=== PATIENT | female | born 1965 | race Caucasian/White ===

== ENCOUNTER 2017-03-15 15:26 | Emergency (ER) | payer MEDICARE, MEDICAID ==
[2017-03-15 15:53] LABS: #Basophils 0.1 thou/uL (0.0-0.2); #Eosinphils 0.1 thou/uL (0.0-0.7); #Lymphocytes 2.3 thou/uL (1.20-3.40); #Monocytes 0.4 thou/uL (0.11-0.59); #Neutrophils 3.2 thou/uL (1.40-6.50); %Basophils 1.1 % (0.0-1.0); %Eosinophils 2.2 % (0.0-10.0); %Lymphocytes 36.9 % (21.0-51.0); %Monocytes 6.8 % (0.0-10.0); Hematocrit 44.4 % (36.0-47.0); Mean Platelet Volume 7.2 fL (7.4-10.4); Red Blood Cell (RBC) Count 4.34 mill/uL (4.20-5.40); White Blood Cell (WBC) Count 6.1 thou/uL (4.8-10.8)
--- NOTE | 2017-03-15 16:17 | RAD ---
FRONTAL RADIOGRAPH CHEST: Date: 03-15-17 Comparison: 01-15-17 History: Dialysis patient, atrial fibrillation, cardiac arrhythmia. FINDINGS: No pneumothorax, pleural fluid, focal consolidation or alveolar edema. Heart and mediastinal contour s unremarkable. IMPRESSION: No acute findings. POS: [facility]
[2017-03-15 16:21] LABS: Troponin I 0.011 ng/mL (< 0.028)
[2017-03-15 16:26] LABS: ALT (SGPT) 13 U/L (8-55); AST (SGOT) 16 U/L (5-34); Alkaline Phosphatase 57 U/L (40-150); Anion Gap 16 mmol/L (10-20); BUN (Urea Nitrogen) 24 mg/dL (9.8-20.1); Bilirubin, Total 0.3 mg/dL (0.2-1.2); CK (CPK) 96 U/L (29-168); Calc. Creatinine Clearance 0 mL/min (70-130); Calcium 9.4 mg/dL (7.8-10.44); Carbon Dioxide 25 mmol/L (22-29); Chloride 103 mmol/L (98-107); Estimated GFR-MDRD 10; Globulin 3.3 g/dL (2.4-3.5); Protein, Total 7.5 g/dL (6.0-8.3)
[2017-03-15 20:31] LABS: Troponin I Less than 0.010 ng/mL (< 0.028)
--- NOTE | 2017-03-18 15:22 | EKG ---
Test Reason : Blood Pressure : / mmHG Vent. Rate : 092 BPM Atrial Rate : 092 BPM P-R Int : 142 ms QRS Dur : 082 ms QT Int : 346 ms P-R-T Axes : 052 000 038 degrees QTc Int : 427 ms Normal sinus rhythm No STEMI Normal ECG Confirmed by AZAM LR M.D. ([id number]), sports editor ANKUR GODFREY ([id number]) on 03/18/2017 3:21:33 PM Referred By: Confirmed By:AZAM LR M.D.
== END 2017-03-15 20:46 | disposition home or self-care (01) ==
LOC: ERS 15:26
DX: I49.3 Ventricular premature depolarization (principal); J44.9 Chronic obstructive pulmonary disease, unspecified; I48.91 Unspecified atrial fibrillation; N18.6 End stage renal disease; Z99.2 Dependence on renal dialysis; F17.210 Nicotine dependence, cigarettes, uncomplicated
CPT/HCPCS: 36415; 71010; 80053; 82553; 84484; 85025; 93005; 94760; 99406

== ENCOUNTER 2017-03-16 16:03 | Emergency (ER) | payer MEDICARE, MEDICAID ==
[2017-03-16 16:48] LABS: #Basophils 0.1 thou/uL (0.0-0.2); #Eosinphils 0.2 thou/uL (0.0-0.7); #Monocytes 0.5 thou/uL (0.11-0.59); #Neutrophils 6.4 thou/uL (1.40-6.50); %Basophils 0.8 % (0.0-1.0); %Eosinophils 2.4 % (0.0-10.0); %Lymphocytes 21.9 % (21.0-51.0); %Monocytes 5.4 % (0.0-10.0); Mean Platelet Volume 6.9 fL (7.4-10.4); Red Blood Cell (RBC) Count 4.42 mill/uL (4.20-5.40); White Blood Cell (WBC) Count 9.3 thou/uL (4.8-10.8)
--- NOTE | 2017-03-16 16:57 | RAD ---
FRONTAL VIEW CHEST: COMPARISON: 03/15/2017 INDICATION: Chest pain. FINDINGS: No consolidation, effusion, or pneumothorax. Chest is stable-appearing from the previous day. IMPRESSION: No focal consolidation. POS: [facility]
[2017-03-16 17:11] LABS: ALT (SGPT) 14 U/L (8-55); AST (SGOT) 14 U/L (5-34); Alkaline Phosphatase 58 U/L (40-150); Anion Gap 21 mmol/L (10-20); BUN (Urea Nitrogen) 32 mg/dL (9.8-20.1); Bilirubin, Total 0.5 mg/dL (0.2-1.2); CK (CPK) 94 U/L (29-168); Calc. Creatinine Clearance 0 mL/min (70-130); Calcium 9.5 mg/dL (7.8-10.44); Carbon Dioxide 18 mmol/L (22-29); Chloride 105 mmol/L (98-107); Estimated GFR-MDRD 8; Globulin 3.3 g/dL (2.4-3.5); Lipase 32 U/L (8-78); Protein, Total 7.4 g/dL (6.0-8.3)
[2017-03-16 17:23] LABS: Troponin I Less than 0.010 ng/mL (< 0.028)
--- NOTE | 2017-03-18 15:24 | EKG ---
Test Reason : Blood Pressure : / mmHG Vent. Rate : 084 BPM Atrial Rate : 084 BPM P-R Int : 126 ms QRS Dur : 084 ms QT Int : 360 ms P-R-T Axes : 073 029 059 degrees QTc Int : 425 ms Normal sinus rhythm Normal ECG Confirmed by AZAM LR M.D. ([id number]), film editor ANKUR GODFREY ([id number]) on 03/18/2017 3:23:54 PM Referred By: Confirmed By:AZAM LR M.D.
== END 2017-03-16 16:05 | disposition left against medical advice (07) ==
LOC: ERS 16:03
DX: Z53.21 Procedure and treatment not carried out due to patient leaving prior to being seen by health care provider (principal)
CPT/HCPCS: 36415; 71010; 80053; 82553; 83690; 83880; 84484; 85025; 93005

== ENCOUNTER 2017-05-17 15:38 | Inpatient (IN) | payer MEDICARE, MEDICAID ==
[2017-05-17 16:36] LABS: #Basophils 0.1 thou/uL (0.0-0.2); #Eosinphils 0.1 thou/uL (0.0-0.7); #Lymphocytes 2.5 thou/uL (1.20-3.40); #Monocytes 0.7 thou/uL (0.11-0.59); #Neutrophils 4.5 thou/uL (1.40-6.50); %Basophils 1.2 % (0.0-1.0); %Eosinophils 1.8 % (0.0-10.0); %Lymphocytes 32.1 % (21.0-51.0); %Monocytes 8.3 % (0.0-10.0); %Neutrophils 56.5 % (42.0-75.0); Mean Corpuscular HGB CONC 32.6 g/dL (32.0-36.0); Mean Corpuscular Hemoglobin 33.2 pg (27.0-31.0); Mean Platelet Volume 7.1 fL (7.4-10.4); Platelet Count 244 thou/uL (130-400); RBC Distribution Width 12.3 % (11.5-14.5); Red Blood Cell (RBC) Count 4.22 mill/uL (4.20-5.40); White Blood Cell (WBC) Count 7.9 thou/uL (4.8-10.8)
[2017-05-17 17:02] LABS: ALT (SGPT) 19 U/L (8-55); AST (SGOT) 12 U/L (5-34); Albumin 3.6 g/dL (3.5-5.0); Alkaline Phosphatase 56 U/L (40-150); Anion Gap 17 mmol/L (10-20); BUN (Urea Nitrogen) 37 mg/dL (9.8-20.1); Bilirubin, Total 0.3 mg/dL (0.2-1.2); Calc. Creatinine Clearance 0 mL/min (70-130); Calcium 9.1 mg/dL (7.8-10.44); Carbon Dioxide 24 mmol/L (22-29); Chloride 105 mmol/L (98-107); Estimated GFR-MDRD 8; Globulin 2.9 g/dL (2.4-3.5); Glucose 97 mg/dL (70-105); Protein, Total 6.5 g/dL (6.0-8.3); Sodium 142 mmol/L (136-145)
[2017-05-17 17:05] LABS: CKMB 1.2 ng/mL (0-6.6); Troponin I Less than 0.010 ng/mL (< 0.028)
[2017-05-17 17:37] LABS: PTT 29.9 SEC (22.9-36.1); Prothrombin Time 13.5 SEC (12.0-14.7)
--- NOTE | 2017-05-17 18:20 | CT ---
EXAM: NONCONTRAST HEAD CT 05/17/17 HISTORY: Left sided paresthesia. Left sided numbness involving the leg and arm since waking up at 10 a.m. COMPARISON: 04/04/14. TECHNIQUE: Noncontrast head CT is performed from skull base to skull vertex. FINDINGS: No parenchymal hemorrhage. No extra-axial hematoma. No midline shift. Basilar cisterns are patent. Br ain volume is age appropriate. Cortical herrera-white matter differentiation is preserved. Ventricles and sulci are patent and symmetric. Stable remote lacunar infarct involving the posterior left lentiform nucleus. Intact calvarium. Adequate aeration of the sinuses and mastoid air cells. IMPRESSION: No acute intracranial process. Results of the study discussed with Dr. Yuan 05/17/17 at 5:40 p.m. Code MALENA POS: [facility]
--- NOTE | 2017-05-17 18:20 | RAD ---
CHEST ONE VIEW 05/17/17 HISTORY: Cough. COMPARISON: 03/16/17 FINDINGS: Normal cardiac silhouette. The pulmonary vessels and hilum are normal. Costophrenic angles are clear. No mass. No consolidation. No pneumothorax or osseous abnormality. IMPRESSION: No acute cardiopulmonary process. POS: [facility]
[2017-05-17] MEDS ORDERED: Clopidogrel Bisulfate 75 MG TAB PO SCH (19:00)
[2017-05-17 20:16] LABS: Bilirubin Negative (Negative); Blood, Urine Negative (Negative); Clarity CLEAR (Clear); Glucose, Urine (Dipstick) Negative (Negative); Leukocyte Negative (Negative); Nitrite Negative (Negative); Protein, Urine (Dipstick) 100 mg/dL (Neg-Trace); Urobilinogen 0.2 mg/dL (0.2-1.0)
[2017-05-17 20:18] LABS: Bacteria/HPF Rare-Few HPF (None Seen); Hyaline Casts/LPF 0-3 HYALINE CAST LPF (0-3 Hyaline); RBC/HPF 0-3 HPF (0-3); Squamous Epithelial 0-3 HPF (0-3); WBC/HPF 0-3 HPF (0-3)
[2017-05-17] MEDS ORDERED: Ondansetron HCl/PF 4 MG/2 ML Vial IVP PRN (20:21)
[2017-05-17] MEDS ORDERED: Acetaminophen 325 MG TAB PO PRN (20:21)
[2017-05-17] MEDS ORDERED: Ondansetron ODT 4 MG TAB SL PRN (20:21)
[2017-05-17 21:11] LABS: Troponin I Less than 0.010 ng/mL (< 0.028)
[2017-05-17 21:32] VITALS: BMI 28.8
[2017-05-17 22:58] LABS: Troponin I Less than 0.010 ng/mL (< 0.028)
[2017-05-18] MEDS ORDERED: Acetaminophen 500 MG TAB PO PRN (07:51)
[2017-05-18] MEDS ORDERED: PROVENTIL INHALER 6.7 G (200 INHALATIONS) INH PRN (07:51)
--- NOTE | 2017-05-18 08:44 | HP ---
CHIEF COMPLAINT: Left-sided numbness and weakness. HISTORY OF PRESENT ILLNESS: This is a 51-year-old female patient with a history of COPD, hypertensio n, paroxysmal atrial fibrillation, end-stage renal disease from polycystic kidney disease on dialysis , presented to the emergency department with onset of left-sided numbness, tingling and weakness. Th e patient states that 2 days ago she developed left leg numbness and tingling, her left foot continue d to be numb. Yesterday, she developed left facial tingling and headache and dizziness, presented to the emergency department for further evaluation at that time. In the ER, her evaluation was normal. She had a normal CAT scan of the brain, normal EKG. She has a history of a TIA in 2013, symptoms r esolved completely at that time and she is now being admitted for further evaluation and treatment fo r TIA versus CVA. The patient denies any vision changes, any speech changes, no falls. Her dizziness and headache reso lved, but she continues to have left hand weakness as well as left foot and left arm numbness. Of no te, she had a recent bout of bronchitis and continues to have some cough at this point. PAST MEDICAL HISTORY: Again COPD. She recently quit smoking, history of paroxysmal atrial fibrillat ion followed by Dr. Chaves at [facility]. She had an episode a few months ago of a rapid ventr icular response which resolved with medications and she is now on diltiazem for rate control. Hypert ension, end-stage renal disease on dialysis for polycystic kidney disease, history of TIA in 2012 or 2013. PAST SURGICAL HISTORY: Fistula placement in the right arm, history of a right chest MediPort which h as been removed, history of a tubal ligation, cholecystectomy, umbilical hernia repair. SOCIAL HISTORY: Quit smoking months ago, but long history of remote smoking. Lives at home with her family. No drug use. No alcohol use. FAMILY HISTORY: Mother with polycystic kidney disease and CVA. No heart disease, no diabetes. REVIEW OF SYSTEMS: As per the history of present illness. HEENT: Positive headache, positive congestion. CARDIOVASCULAR: Denies chest pain, shortness of breath or palpitations. PULMONARY: Denies shortness of breath. Positive cough production. GASTROINTESTINAL: Denies nausea, vomiting, abdominal pain, melena or hematochezia. GENITOURINARY: Denies dysuria or hematuria. CARDIAC: As per the history of present illness. MUSCULOSKELETAL: Occasional joint pains. PSYCHIATRIC: No recent history of depression or anxiety. PHYSICAL EXAMINATION: VITAL SIGNS: Temperature 98.5, pulse 80-91, respirations 20, blood pressure 127/83, pulse ox 97% on room air. GENERAL: She is awake and alert, in no acute distress. Speech is clear and fluent, no conversationa l dyspnea. NECK: Supple, no bruits. HEART: Regular rate and rhythm with a 2/6 systolic ejection murmur. LUNGS: Clear bilaterally. No wheezes, rales or rhonchi. ABDOMEN: Soft. EXTREMITIES: With no edema. 2+ peripheral pulses bilaterally. NEUROLOGIC: Cranial nerves II-XII grossly intact. Strength is 5/5 bilaterally. Sensation decreased on the left hand and left foot, no lateralizing signs. SKIN Cranial nerves II-XII are grossly intact. LABORATORY DATA: As reviewed. CT of the brain showed no active disease. EKG was normal sinus rhyth m with no acute ST-T changes. Labs again revealed renal failure. ASSESSMENT AND PLAN: This is a 51-year-old female patient with a history of paroxysmal atrial fibril lation, remote history of transient ischemic attack and on dialysis for end-stage renal disease, now with episode consistent with transient ischemic attack versus cerebrovascular accident. 1. We will check MRI, carotid Dopplers and echocardiogram. We will continue Plavix 75 mg once daily . Consult Neurology for evaluation. 2. Hypertension. We will continue to monitor. 3. Paroxysmal atrial fibrillation. We will continue diltiazem and watch for low blood pressure read ings. 4. End-stage renal disease. Appreciate Dr. Burton. Will continue dialysis as per his plan. 5. Paroxysmal atrial fibrillation. Await echocardiogram. Consider continuing on Plavix or Eliquis.
--- NOTE | 2017-05-18 08:57 | CON ---
DATE OF CONSULTATION: 05/18/2017 SUBJECTIVE: Ms. 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 She tells me she woke up early that day with a fee ling of left leg numbness and weakness. CT scan of the brain showed no acute intracranial abnormalit y. Chest x-ray was also within normal. She said that she was treated for a course of bronchitis wit h steroids and antibiotics. We are now being consulted for her maintenance hemodialysis. REVIEW OF SYSTEMS: Positive left-sided weakness - resolved. No chest pain, no shortness of breath. No syncopal episode. Occasional dizziness. No diarrhea, no constipation. No fever or chills. No productive cough. No abdominal pain. Appetite and energy level is fair. No hematochezia. No melen a, no hematemesis, no dysuria, no urinary frequency. Occasional joint pains. No sore throat. No de creased hearing. No diplopia. HOME MEDICATIONS: Includes Renvela 800 mg 2 tabs b.i.d., albuterol 2 puffs every 4 hours p.r.n., dil tiazem 120 mg XL tab once a day, Eliquis 2.5 mg p.o. b.i.d. PAST MEDICAL HISTORY: 1. ESRD secondary to autosomal dominant polycystic kidney disease. 2. History of hypertension? 3. AFIB, currently resolved. PAST SURGICAL HISTORY: 1. Status post AV fistula placement. 2. Status post cuffed hemodialysis catheter placement. 3. Status post PD catheter placement with subsequent removal. 4. Status post bilateral tubal ligation. 5. Status post open cholecystectomy. 6. Status post infraumbilical midline hernia repair - mesh placement. ALLERGIES: CODEINE, ASPIRIN, LISINOPRIL. TRAUMA: None. IMMUNIZATIONS: Up to date. HOSPITALIZATIONS: Please see past medical history. SOCIAL HISTORY: The patient is and lives in the [facility] area. Currently, no s moking, no alcohol intake. Status post blood transfusion. Sedentary lifestyle. No IV drug abuse. No alcohol use. FAMILY HISTORY: Positive family history of chronic renal problems. PHYSICAL EXAMINATION: VITAL SIGNS: Blood pressure is currently 103/70, heart rate 90, respiratory rate 16, temperature 98. 6, and pulse ox 98%. GENERAL: Noted to be awake, comfortable, not in distress. SKIN: Adequate turgor. HEENT: She has pinkish conjunctivae, anicteric sclerae. NECK: No neck mass, no carotid bruits, no JVD. CHEST: No deformities. LUNGS: Clear breath sounds. No wheezing. No crackles heard. HEART: Normal sinus rhythm. No murmur, no gallops, no rubs. ABDOMEN: Globular, soft, nontender, no masses. EXTREMITIES: No edema. NEUROLOGIC: Awake, oriented to 3 spheres. Moving all extremities. No tremors and no asterixis. LABORATORY DATA AND IMAGING DATA: Laboratories of 05/17/2017; white count 7.9, hemoglobin 14, sodium 142, potassium 4, chloride 105, carbon dioxide 24, BUN 37, creatinine 5.77, AST 12, ALT 19. CK-MB i s 1.2, albumin 3.6, troponin I less than 0.01. CT scan of the brain negative. Chest x-ray negative. ASSESSMENT AND PLAN: 1. End-stage renal disease, stable. Currently, the patient is undergoing dialysis. My plan due to the low blood pressure and dizziness is to minimize fluid removal. She is undergoing dialysis today because she missed her treatment yesterday. I am at the bedside supervising her dialysis. 2. Left-sided weakness - resolved. CT scan was negative. 3. Chronic atrial fibrillation, on Cardizem and Eliquis. Agree with current management.
[2017-05-18] MEDS ORDERED: DILTIAZEM HCL 120 MG PO SCH (09:00)
[2017-05-18] MEDS: Sevelamer Carbonate 800 MG TAB PO SCH ×3 (12:08→16:42)
[2017-05-18] MEDS: Apixaban 5 MG TAB PO SCH ×2 (12:09→21:06)
--- NOTE | 2017-05-18 12:45 | ULT ---
CAROTID ULTRASOUND WITH STONE SCALE AND DOPPLER DUPLEX COLOR FLOW IMAGING SPECTRAL ANALYSIS PERFORMED: CLINICAL INDICATION: Left sided weakness FINDINGS: There is no significant atherosclerotic calcification of the carotid arteries. PEAK SYSTOLIC VELOCITY (CM/S): Right CCA 83 Left CCA 83 Right ICA 70 Left ICA 51 There is antegrade flow within the visualized bilateral vertebral arteries. IMPRESSION: 1. No hemodynamically significant stenosis of the right internal carotid artery. 2. No hemodynamically significant stenosis of the left internal carotid artery. POS: [facility]
--- NOTE | 2017-05-18 14:05 | MRI ---
BRAIN MRI WITHOUT CONTRAST: Date: 05-18-17 Comparison: 12-07-13 History: Left sided numbness. Lightheadedness. Technique: Multisequence MR imaging of the brain provided without contrast. FINDINGS: The diffusion weighted imaging demonstrates no evidence for acute infarction. The axial gradient echo imaging demonstrates no evidence for intracranial hemorrhage. There are scattered foci of increased T2 and FLAIR signal within the periventricular, deep and subcor tical white matter, right more numerous than left, nonspecific and not significantly changed since 2013 exam. The imaged paranasal sinuses/mastoid air cells demonstrate normal signal intensity. Juliet rial flow voids at the axial level of the skull base appear grossly unremarkable on the T2 weighted i maging. Regional bone marrow signal intensity is within normal limits. IMPRESSION: Stable noncontrast enhanced brain MRI. No evidence for acute infarction. POS: [facility]
[2017-05-18] MEDS ORDERED: Temazepam 15 MG CAP PO PRN (15:43)
[2017-05-18] MEDS ORDERED: diphenhydrAMINE 25 MG CAP PO PRN (15:50)
[2017-05-18] MEDS ORDERED: Nicotine 21 MG PATCH TOP SCH (16:00)
--- NOTE | 2017-05-18 19:15 | CON ---
DATE OF CONSULTATION: 05/18/2017 CONSULTING PHYSICIAN: Hospitalist Service. IMPRESSION: 1. Transient ischemic attack episode suggestive of possible brainstem ischemic event. 2. End-stage renal disease. 3. Atrial fibrillation. PLAN: 1. Eliquis. 2. The patient discharged home. HISTORY OF PRESENT ILLNESS: Ms. Crawford is a middle-aged woman with a past history as noted above. Richard benites presented with right-sided weakness, tingling, and some dizziness. Symptoms lasted approximately 1 hour and steadily improved. She had an MRI of the brain done today, which showed some chronic small vessel ischemic changes and no acute ischemic event. Carotid Doppler was unremarkable. She has a h istory of atrial fibrillation. She has not been on any anticoagulants or aspirin recently. PAST MEDICAL HISTORY: Listed above. ALLERGIES: None. SOCIAL HISTORY: Unremarkable. FAMILY HISTORY: Noncontributory. REVIEW OF SYSTEMS: Otherwise, negative for any focal neurologic events in the past. PHYSICAL EXAMINATION: GENERAL: She is alert and appropriate. Her speech is fluent and clear. NEUROLOGIC: Cranial nerves II-XII are intact. Motor exam showed symmetric strength. There was no f ix or drift. Sensation was intact to light touch. Cerebellar testing showed normal finger to nose a nd rapid alternating movements. She can walk independently. HEENT: Unremarkable. NECK: Supple. No lymphadenopathy noted. EXTREMITIES: No cyanosis, clubbing, or edema. SUMMARY: This is a middle-aged woman with risk factors for stroke. I agree with starting her on Malka cindy. She has returned to normal baseline. We happy to follow up with her for further care.
[2017-05-18] MEDS ORDERED: Temazepam 15 MG CAP PO SCH (21:00)
[2017-05-18] MEDS ORDERED: Atorvastatin Calcium 10 MG TAB PO SCH (21:00)
[2017-05-19 05:39] LABS: Cardiac Risk 3.6 (Less than 4.5)
[2017-05-19 07:45] VITALS: BP 114/61; TEMP 98.9
--- NOTE | 2017-05-19 08:28 | DIS ---
DATE OF ADMISISON: 05/17/2017 DATE OF DISCHARGE: 05/19/2017 ADMISSION DIAGNOSES: Left-sided numbness and weakness. DISCHARGE DIAGNOSES: Transient ischemic attack, possible brainstem ischemic event. OTHER DIAGNOSES: End-stage kidney disease, polycystic kidney disease, paroxysmal atrial fibrillation . CONSULTATIONS: Dr. Catherine for Neurology, Dr. Burton for Nephrology. PROCEDURES: Telemetry monitoring, brain CT, MRI brain, carotid Doppler, echocardiogram. HOSPITAL COURSE: This is a 51-year-old female patient with a history of paroxysmal atrial fibrillati on, followed by Cardiology at [facility]. She has been rate controlled on beta-blockers and ant icoagulated only with aspirin. She has a history of polycystic kidney disease with end-stage kidney disease, on hemodialysis. Has a history of a TIA back in 2012 or 2013 and her symptoms completely re solved at that time. She presented to the emergency department with 2 days of worsening left leg num bness, left hand numbness and weakness. She developed a left facial tingling, headache, dizziness, a nd presented to the emergency department. In the ER, her CT of the brain was normal. EKG was normal . She continued to have the symptoms. She was given a dose of Plavix in the ER and admitted. She u nderwent MRI of her brain, which showed no active disease. Carotid Dopplers were clear. Echocardiog chris report is pending at this time. Due to her history of past TIA and her paroxysmal atrial fibrill ation, she was started on Eliquis 2.5 mg b.i.d. and started on aspirin. She was seen by Dr. Burton, con tinued on her hemodialysis during her hospitalization. Dr. Catherine saw the patient in evaluation and agreed with TIA and possible brainstem ischemic event. He agreed with initiating Eliquis therapy wi th close followup. She was close to her baseline and she was walking. No speech issues. No swallow ing problems and was stable for discharge on the day of discharge. Of note, she was recently seen in my office for bronchitis. She has continued to have a cough, but i mproved with nebulizer treatments. DISCHARGE PHYSICAL EXAMINATION: VITAL SIGNS: Temperature 98.9, pulse is 74 and regular, respirations 16-20, blood pressure 114/61, p ulse ox 96%-98% on room air. GENERAL: She is in awake and alert, in no acute distress. Speech is clear. NECK: Supple. HEART: Regular rate and rhythm. LUNGS: With scattered expiratory rhonchi, rare wheezes. ABDOMEN: Soft. EXTREMITIES: No edema. NEUROLOGIC: Cranial nerves II through XII were intact. Strength is 5/5 bilaterally. Sensation with slight decreased sensation in her left hand and left foot. DISCHARGE LABORATORY DATA: EKG showed no acute ST-T changes. White blood cell count 7,900, total ch olesterol 153, triglycerides 126, LDL of 85, HDL 43. Again, brain CT showed no active disease. Brai n MRI was normal with no acute infarction. Carotid Doppler were clear. Echocardiogram is pending. DISCHARGE MEDICATIONS: Include Eliquis 2.5 mg b.i.d., Lipitor 10 mg daily, Albuterol 2 puffs q.6 oralia rs p.r.n., DuoNeb p.r.n., Toprol 25 mg daily, Renvela 1600 mg t.i.d., Restoril 15 mg at bedtime, pred nisone taper over the next week. FOLLOWUP INSTRUCTIONS: Patient to follow up in my office in 1-2 weeks. Follow up with Dr. Dorene daniel 2 weeks.
[2017-05-19] MEDS: Apixaban 5 MG TAB PO SCH (08:56)
[2017-05-19] MEDS: Sevelamer Carbonate 800 MG TAB PO SCH (08:56)
--- NOTE | 2017-05-19 09:20 | PRG ---
DATE OF SERVICE: 05/19/2017 SUBJECTIVE: Ms. Crawford is a 51-year-old white female with known history of ESRD secondary to polycyst ic kidney disease, on maintenance hemodialysis and admitted for TIA. Comprehensive workup was essent ially negative. She tolerated dialysis yesterday. She is due for her dialysis today. I did instruc t the patient, upon discharge, to report for dialysis this afternoon at the outpatient dialysis unit. She voices no new complaints. She denies any chest pain, shortness of breath. PHYSICAL EXAMINATION: VITAL SIGNS: Blood pressure 114/61, heart rate 74, respiratory rate 20, temperature 98.9, pulse ox 9 6%. GENERAL: Noted to be awake, alert, comfortable, not in distress. SKIN: Adequate turgor. HEENT: Pinkish conjunctivae, anicteric sclerae. NECK: No neck mass, no carotid bruits, no JVD. CHEST: No deformities. LUNGS: Clear breath sounds, no wheezing, no crackles. HEART: Normal sinus rhythm. No murmurs, gallops or rubs. ABDOMEN: Globular, soft, nontender, no masses. EXTREMITIES: No edema, no deformities. LABORATORY: 05/19/2017 - Triglycerides 126, cholesterol 153, LDL is 85, HDL is 43. ASSESSMENT AND PLAN: 1. End-stage renal disease, stable. Continue Monday, Monday, Monday dialysis. Patient instructe d to report for outpatient dialysis this afternoon. 2. Status post transient ischemic attack - feeling better. Negative workup. Continue current manag ement.
--- NOTE | 2017-06-17 14:35 | EKG ---
Test Reason : Blood Pressure : / mmHG Vent. Rate : 093 BPM Atrial Rate : 093 BPM P-R Int : 128 ms QRS Dur : 082 ms QT Int : 356 ms P-R-T Axes : 067 -05 022 degrees QTc Int : 442 ms Normal sinus rhythm Possible Left atrial enlargement Inferior infarct , age undetermined Abnormal ECG Confirmed by REBECCA GIBSON DO ([id number]), video tape editor BERTIN ZALDIVAR ([id number]) on 06/17/2017 2:35:03 PM Referred By: Confirmed By:REBECCA GIBSON DO
== END 2017-05-19 09:45 | disposition home or self-care (01) | DRG 69 ==
LOC: ERS 15:38 → 2SE 18:35
PROVIDERS: ADMIT Family Medicine; ATTEND Family Medicine
PROC: 5A1D70Z Performance of Urinary Filtration, Intermittent, Less than 6 Hours Per Day (ICD-10-PCS; principal; 2017-05-18)
DX: G45.9 Transient cerebral ischemic attack, unspecified (principal); I12.0 Hypertensive chronic kidney disease with stage 5 chronic kidney disease or end stage renal disease; N18.6 End stage renal disease; I48.0 Paroxysmal atrial fibrillation; Q61.2 Polycystic kidney, adult type; I67.82 Cerebral ischemia; Z99.2 Dependence on renal dialysis; Z87.891 Personal history of nicotine dependence; J44.9 Chronic obstructive pulmonary disease, unspecified
CPT/HCPCS: 36415; 36416; 70450; 70551; 71045; 80053; 80061; 81003; 81015; 82553; 84484; 85025; 85610; 85730; 90935; 93005; 93306; 93880; G0257

== ENCOUNTER 2017-08-28 20:17 | Emergency (ER) | payer MEDICARE, MEDICAID ==
[2017-08-28 21:30] LABS: #Basophils 0.1 thou/uL (0.0-0.2); #Eosinphils 0.1 thou/uL (0.0-0.7); #Lymphocytes 1.9 thou/uL (1.20-3.40); #Monocytes 0.3 thou/uL (0.11-0.59); #Neutrophils 1.6 thou/uL (1.40-6.50); %Basophils 2.2 % (0.0-1.0); %Eosinophils 2.7 % (0.0-10.0); %Lymphocytes 47.8 % (21.0-51.0); %Monocytes 7.6 % (0.0-10.0); %Neutrophils 39.8 % (42.0-75.0); Hemoglobin 12.8 g/dL (12.0-16.0); Mean Corpuscular HGB CONC 32.5 g/dL (32.0-36.0); Mean Corpuscular Hemoglobin 32.5 pg (27.0-31.0); Mean Platelet Volume 7.4 fL (7.4-10.4); Platelet Count 174 thou/uL (130-400); RBC Distribution Width 12.2 % (11.5-14.5); Red Blood Cell (RBC) Count 3.92 mill/uL (4.20-5.40); White Blood Cell (WBC) Count 3.9 thou/uL (4.8-10.8)
--- NOTE | 2017-08-28 21:37 | RAD ---
AP VIEW CHEST: INDICATIONS: Headache with lung pain. COMPARISON: 06/13/2017 FINDINGS: The lungs are clear. The cardiomediastinal silhouette is normal. No acute osseous abnormality is ev ident. IMPRESSION: No acute cardiopulmonary abnormality. POS: [facility]
[2017-08-28 21:55] LABS: ALT (SGPT) 16 U/L (8-55); AST (SGOT) 18 U/L (5-34); Alkaline Phosphatase 69 U/L (40-150); Anion Gap 19 mmol/L (10-20); BUN (Urea Nitrogen) 16 mg/dL (9.8-20.1); Bilirubin, Total 0.3 mg/dL (0.2-1.2); Calc. Creatinine Clearance 0 mL/min (70-130); Calcium 8.3 mg/dL (7.8-10.44); Carbon Dioxide 30 mmol/L (22-29); Chloride 95 mmol/L (98-107); Estimated GFR-MDRD 12; Globulin 3.3 g/dL (2.4-3.5); Glucose 98 mg/dL (70-105); Potassium 3.7 mmol/L (3.5-5.1); Protein, Total 7.3 g/dL (6.0-8.3); Sodium 140 mmol/L (136-145)
[2017-08-28 22:34] LABS: CKMB 1.7 ng/mL (0-6.6); Troponin I Less than 0.010 ng/mL (< 0.028)
[2017-08-28] MEDS ORDERED: Acetaminophen 500 MG TAB ONE ×2 (22:47→22:48)
[2017-08-29] MEDS ORDERED: diphenhydrAMINE 50 MG/ML VIAL ONE (00:59)
[2017-08-29] MEDS ORDERED: Promethazine HCl 25 MG/ML VIAL ONE (00:59)
[2017-08-29] MEDS ORDERED: Dexamethasone 4 mg/ml Vial ONE (00:59)
[2017-08-29 01:19] LABS: Troponin I Less than 0.010 ng/mL (< 0.028)
== END 2017-08-29 01:47 | disposition home or self-care (01) ==
LOC: ERS 20:17
DX: J44.1 Chronic obstructive pulmonary disease with (acute) exacerbation (principal); J32.9 Chronic sinusitis, unspecified; I48.91 Unspecified atrial fibrillation; I12.0 Hypertensive chronic kidney disease with stage 5 chronic kidney disease or end stage renal disease; N18.6 End stage renal disease; Z86.73 Personal history of transient ischemic attack (TIA), and cerebral infarction without residual deficits; Z79.899 Other long term (current) drug therapy
CPT/HCPCS: 36415; 71045; 80053; 82553; 83880; 84484; 85025; 93005; 94640; 94760; 96361; 96365; 96375; J1100; J1200; J2550; J7620

== ENCOUNTER 2017-09-10 16:54 | Emergency (ER) | payer MEDICARE, MEDICAID ==
[2017-09-10 17:48] LABS: #Basophils 0.1 thou/uL (0.0-0.2); #Eosinphils 0.3 thou/uL (0.0-0.7); #Lymphocytes 2.9 thou/uL (1.20-3.40); #Monocytes 0.5 thou/uL (0.11-0.59); #Neutrophils 3.6 thou/uL (1.40-6.50); %Basophils 0.8 % (0.0-1.0); %Eosinophils 3.5 % (0.0-10.0); %Lymphocytes 39.3 % (21.0-51.0); %Monocytes 6.9 % (0.0-10.0); %Neutrophils 49.6 % (42.0-75.0); Mean Corpuscular Hemoglobin 32.3 pg (27.0-31.0); Mean Corpuscular Volume 97.8 fl (81.0-99.0); Mean Platelet Volume 6.8 fL (7.4-10.4); Platelet Count 202 thou/uL (130-400); RBC Distribution Width 11.7 % (11.5-14.5); Red Blood Cell (RBC) Count 4.04 mill/uL (4.20-5.40); White Blood Cell (WBC) Count 7.3 thou/uL (4.8-10.8)
[2017-09-10 17:50] LABS: Bilirubin Negative (Negative); Blood, Urine Negative (Negative); Clarity CLEAR (Clear); Glucose, Urine (Dipstick) Negative (Negative); Leukocyte Negative (Negative); Nitrite Negative (Negative); Protein, Urine (Dipstick) 30 mg/dL (Neg-Trace); Urobilinogen 0.2 mg/dL (0.2-1.0); pH, Urine 8.5 (5.0-9.0)
[2017-09-10 17:54] LABS: Bacteria/HPF None Seen HPF (None Seen); Hyaline Casts/LPF 0-3 HYALINE CAST LPF (0-3 Hyaline); RBC/HPF 0-3 HPF (0-3); Squamous Epithelial 0-3 HPF (0-3); WBC/HPF 0-3 HPF (0-3)
[2017-09-10 18:14] LABS: ALT (SGPT) 8 U/L (8-55); AST (SGOT) 13 U/L (5-34); Alkaline Phosphatase 61 U/L (40-150); Anion Gap 17 mmol/L (10-20); BUN (Urea Nitrogen) 43 mg/dL (9.8-20.1); Bilirubin, Total 0.4 mg/dL (0.2-1.2); Calc. Creatinine Clearance 0 mL/min (70-130); Calcium 8.7 mg/dL (7.8-10.44); Carbon Dioxide 25 mmol/L (22-29); Chloride 102 mmol/L (98-107); Estimated GFR-MDRD 5; Globulin 2.8 g/dL (2.4-3.5); Glucose 86 mg/dL (70-105); Lipase 34 U/L (8-78); Magnesium 1.8 mg/dL (1.6-2.6); Potassium 5.8 mmol/L (3.5-5.1); Protein, Total 6.8 g/dL (6.0-8.3); Sodium 138 mmol/L (136-145)
[2017-09-10] MEDS ORDERED: Lidocaine 1% PF 5 ML VIAL ONE (18:14)
[2017-09-10 18:16] LABS: CKMB 1.8 ng/mL (0-6.6); Troponin I Less than 0.010 ng/mL (< 0.028)
[2017-09-10] MEDS ORDERED: Diazepam 5 MG TAB ONE (18:29)
--- NOTE | 2017-09-10 19:22 | RAD ---
PORTABLE CHEST ONE VIEW: Date: 09-10-17 Time: 5:19 p.m. History: Chest pain. FINDINGS: Compared with exam of 08-28-17. The heart size is normal. The aorta is tortuous. The lungs are expanded without focal areas of consol idation, pneumothorax, or pleural effusions. IMPRESSION: No acute process. POS: [facility]
--- NOTE | 2017-10-09 14:46 | EKG ---
Test Reason : Blood Pressure : / mmHG Vent. Rate : 088 BPM Atrial Rate : 088 BPM P-R Int : 132 ms QRS Dur : 084 ms QT Int : 352 ms P-R-T Axes : 075 027 056 degrees QTc Int : 425 ms Normal sinus rhythm Normal ECG Reconfirmed by PROSPER HERNANDEZ ([id number]), marketing editor ANKUR GODFREY ([id number]) on 10/09/2017 2:45:57 PM Referred By: Confirmed By:PROSPER HERNANDEZ
== END 2017-09-10 19:12 | disposition home or self-care (01) ==
LOC: ERS 16:54
DX: M62.830 Muscle spasm of back (principal); I12.0 Hypertensive chronic kidney disease with stage 5 chronic kidney disease or end stage renal disease; N18.6 End stage renal disease; J44.9 Chronic obstructive pulmonary disease, unspecified; I48.91 Unspecified atrial fibrillation; Z86.73 Personal history of transient ischemic attack (TIA), and cerebral infarction without residual deficits; Z99.2 Dependence on renal dialysis; Z87.891 Personal history of nicotine dependence; Z79.899 Other long term (current) drug therapy
CPT/HCPCS: 20552; 36415; 71045; 80053; 81003; 81015; 82553; 83690; 83735; 84484; 85025; 93005; J2001

== ENCOUNTER 2017-10-18 15:55 | Emergency (ER) | payer MEDICARE, MEDICAID ==
--- NOTE | 2017-10-18 16:48 | RAD ---
LEFT FOOT THREE VIEWS: 10/18/17 HISTORY: Trauma, foot pain. FINDINGS/IMPRESSION: A minimally displaced fracture involving the shaft of the proximal phalanx of the fifth toe with exte nsion into the distal articular surface. POS: [facility]
== END 2017-10-18 17:00 | disposition home or self-care (01) ==
LOC: ERS 15:55
DX: S92.512A Displaced fracture of proximal phalanx of left lesser toe(s), initial encounter for closed fracture (principal); J44.9 Chronic obstructive pulmonary disease, unspecified; I48.91 Unspecified atrial fibrillation; N18.6 End stage renal disease; Z86.73 Personal history of transient ischemic attack (TIA), and cerebral infarction without residual deficits; Z79.899 Other long term (current) drug therapy; Z87.891 Personal history of nicotine dependence; W22.8XXA Striking against or struck by other objects, initial encounter

== ENCOUNTER 2017-12-20 14:13 | Emergency (ER) | payer MEDICARE, MEDICAID ==
[2017-12-20 15:43] LABS: Bilirubin Negative (Negative); Blood, Urine Trace (Negative); Clarity CLEAR (Clear); Glucose, Urine (Dipstick) 100 mg/dL (Negative); Leukocyte Negative (Negative); Nitrite Negative (Negative); Protein, Urine (Dipstick) 30 mg/dL (Neg-Trace); Specific Gravity, Urine 1.005 (1.002-1.036); Urobilinogen 0.2 mg/dL (0.2-1.0); pH, Urine 8.5 (5.0-9.0)
[2017-12-20 15:47] LABS: Bacteria/HPF None Seen HPF (None Seen); Hyaline Casts/LPF 0-3 HYALINE CAST LPF (0-3 Hyaline); Pathc Cast-AUWi Flag 0.14 (0-2.49); RBC/HPF 0-3 HPF (0-3); Squamous Epithelial 0-3 HPF (0-3); WBC/HPF 0-3 HPF (0-3)
[2017-12-20 15:55] LABS: #Eosinphils 0.1 thou/uL (0.0-0.7); #Lymphocytes 1.8 thou/uL (1.20-3.40); #Monocytes 0.5 thou/uL (0.11-0.59); %Basophils 0.7 % (0.0-1.0); %Eosinophils 2.3 % (0.0-10.0); %Lymphocytes 33.8 % (21.0-51.0); %Monocytes 8.7 % (0.0-10.0); %Neutrophils 54.6 % (42.0-75.0); Hemoglobin 12.8 g/dL (12.0-16.0); Mean Corpuscular HGB CONC 33.9 g/dL (32.0-36.0); Mean Corpuscular Hemoglobin 33.6 pg (27.0-31.0); Mean Platelet Volume 6.7 fL (7.4-10.4); Platelet Count 190 thou/uL (130-400); RBC Distribution Width 12.7 % (11.5-14.5); Red Blood Cell (RBC) Count 3.82 mill/uL (4.20-5.40); White Blood Cell (WBC) Count 5.4 thou/uL (4.8-10.8)
[2017-12-20 15:59] LABS: Lactic Acid 2.1 mmol/L (0.5-2.2)
[2017-12-20 16:03] LABS: ALT (SGPT) 9 U/L (8-55); AST (SGOT) 10 U/L (5-34); Alkaline Phosphatase 50 U/L (40-150); Anion Gap 19 mmol/L (10-20); BUN (Urea Nitrogen) 28 mg/dL (9.8-20.1); Bilirubin, Total 0.4 mg/dL (0.2-1.2); CK (CPK) 91 U/L (29-168); Calc. Creatinine Clearance 0 mL/min (70-130); Calcium 8.5 mg/dL (7.8-10.44); Carbon Dioxide 24 mmol/L (22-29); Chloride 101 mmol/L (98-107); Estimated GFR-MDRD 7; Globulin 2.4 g/dL (2.4-3.5); Glucose 93 mg/dL (70-105); Lipase 54 U/L (8-78); Potassium 5.2 mmol/L (3.5-5.1); Protein, Total 6.4 g/dL (6.0-8.3); Sodium 139 mmol/L (136-145)
[2017-12-20 16:04] LABS: INR-International Normal Ratio 1.1; PTT 34.7 SEC (22.9-36.1)
[2017-12-20 16:07] LABS: CKMB 1.3 ng/mL (0-6.6); Troponin I Less than 0.010 ng/mL (< 0.028)
--- NOTE | 2017-12-20 16:23 | RAD ---
CHEST ONE VIEW: 12/20/17 HISTORY: Chest pain. COMPARISON: 09/10/17. FINDINGS: Cardiac silhouette is magnified by projection. Pulmonary vasculature unremarkable. Mediastinum midlin e. No lobar consolidation or evidence of pneumothorax. Minimal bibasilar atelectasis. sample collector leads overlie the chest. IMPRESSION: No active cardiopulmonary abnormalities are demonstrated. POS: [facility]
== END 2017-12-20 17:15 | disposition home or self-care (01) ==
LOC: ERS 14:13
DX: R10.10 Upper abdominal pain, unspecified (principal); E87.5 Hyperkalemia; N18.6 End stage renal disease; R53.83 Other fatigue; J44.9 Chronic obstructive pulmonary disease, unspecified; I48.91 Unspecified atrial fibrillation; Z86.73 Personal history of transient ischemic attack (TIA), and cerebral infarction without residual deficits; Z87.891 Personal history of nicotine dependence
CPT/HCPCS: 71045; 80053; 81001; 82550; 82553; 83605; 83690; 84484; 85025; 85610; 85730; 86850; 86900; 86901; 87040; 93005

== ENCOUNTER 2018-03-07 14:17 | Emergency (ER) | payer MEDICARE, MEDICAID ==
--- NOTE | 2018-03-07 15:39 | RAD ---
LEFT ANKLE 3 VIEWS: HISTORY: A 52-year-old female with a history of left ankle injury following a fall this morning. FINDINGS: There is evidence for a fairly large nonunited distal fibular epiphysis. Minimal lateral soft tissue swelling. No evidence for acute fracture of dislocation. A small calcaneal enthesophyte. Evidence for a large ankle joint effusion. IMPRESSION: Minimal soft tissue swelling at the ankle with evidence for a possible large joint effusion. An unun ited distal fibular epiphysis possibly related to developmental or an old injury. No acute fracture or dislocation. If the patient has persistent or worsening unexplained ankle pain or certainly evide nce for instability, or if there is clinical concern for the possibility of a nonosseous injury, cons ider nonemergent followup MRI study of the left ankle. POS: [facility]
[2018-03-07] MEDS ORDERED: HYDROcodone/Acetaminophen 5/325 mg Tablet ONE (16:42)
== END 2018-03-07 16:50 | disposition home or self-care (01) ==
LOC: ERS 14:17
DX: S93.402A Sprain of unspecified ligament of left ankle, initial encounter (principal); I48.91 Unspecified atrial fibrillation; Z86.73 Personal history of transient ischemic attack (TIA), and cerebral infarction without residual deficits; J44.9 Chronic obstructive pulmonary disease, unspecified; N18.6 End stage renal disease; Z99.2 Dependence on renal dialysis; Z87.891 Personal history of nicotine dependence; W01.0XXA Fall on same level from slipping, tripping and stumbling without subsequent striking against object, initial encounter; Y92.009 Unspecified place in unspecified non-institutional (private) residence as the place of occurrence of the external cause

== ENCOUNTER 2018-05-12 12:55 | Emergency (ER) | payer MEDICARE, MEDICAID ==
[2018-05-12] MEDS ORDERED: Albuterol Sulfate 2.5 mg/0.5 ml Neb ONE ×2 (13:24)
[2018-05-12] MEDS ORDERED: cefTRIAXone\\ROCEPHIN 1 GM VIAL ONE (13:55)
[2018-05-12] MEDS ORDERED: Dexamethasone 10 MG/ML VIAL ONE (13:55)
[2018-05-12 14:16] LABS: #Eosinphils 0.1 thou/uL (0.0-0.7); #Monocytes 0.4 thou/uL (0.11-0.59); #Neutrophils 2.1 thou/uL (1.40-6.50); %Eosinophils 2.8 % (0.0-10.0); %Lymphocytes 42.9 % (21.0-51.0); %Monocytes 7.9 % (0.0-10.0); %Neutrophils 45.5 % (42.0-75.0); Hemoglobin 13.3 g/dL (12.0-16.0); Mean Corpuscular HGB CONC 33.7 g/dL (32.0-36.0); Mean Corpuscular Hemoglobin 33.2 pg (27.0-31.0); Mean Corpuscular Volume 98.6 fL (78.0-98.0); Mean Platelet Volume 7.1 fL (7.4-10.4); Platelet Count 202 thou/uL (130-400); RBC Distribution Width 12.7 % (11.5-14.5); Red Blood Cell (RBC) Count 4.02 mill/uL (4.20-5.40); White Blood Cell (WBC) Count 4.6 thou/uL (4.8-10.8)
[2018-05-12 14:43] LABS: ALT (SGPT) 16 U/L (8-55); AST (SGOT) 20 U/L (5-34); Albumin 3.7 g/dL (3.5-5.0); Alkaline Phosphatase 41 U/L (40-150); Anion Gap 15 mmol/L (10-20); BUN (Urea Nitrogen) 12 mg/dL (9.8-20.1); Bilirubin, Total 0.5 mg/dL (0.2-1.2); CK (CPK) 82 U/L (29-168); Calc. Creatinine Clearance 0 mL/min (70-130); Carbon Dioxide 32 mmol/L (22-29); Chloride 98 mmol/L (98-107); Estimated GFR-MDRD 10; Globulin 2.9 g/dL (2.4-3.5); Glucose 94 mg/dL (70-105); Lipase 32 U/L (8-78); Protein, Total 6.6 g/dL (6.0-8.3); Sodium 141 mmol/L (136-145)
--- NOTE | 2018-05-12 15:57 | RAD ---
PORTABLE AP CHEST X-RAY: 05/12/18 HISTORY: Weakness and cough. COMPARISON: 12/20/17. FINDINGS: The cardiac silhouette and pulmonary vasculature are within normal limits. Lungs are clear. There has been no interval change from the prior exam. IMPRESSION: No acute cardiopulmonary process. POS: [facility]
== END 2018-05-12 15:19 | disposition home or self-care (01) ==
LOC: ERS 12:55
DX: J20.9 Acute bronchitis, unspecified (principal); J44.0 Chronic obstructive pulmonary disease with (acute) lower respiratory infection; N18.6 End stage renal disease; F17.210 Nicotine dependence, cigarettes, uncomplicated
CPT/HCPCS: 71045; 80053; 82550; 83690; 83880; 84484; 85025; 93005; 94644; 96361; 96365; 96375; J0696; J1100; J7611; J7620

== ENCOUNTER 2018-05-18 19:29 | Emergency (ER) | payer MEDICARE, MEDICAID ==
[~2018-05-18 19:29] MED LIST: Iopamidol 370 76% 100 ML VIAL ONE
[2018-05-18 20:00] LABS: #Basophils 0.1 thou/uL (0.0-0.2); #Eosinphils 0.1 thou/uL (0.0-0.7); #Lymphocytes 2.9 thou/uL (1.20-3.40); #Monocytes 0.6 thou/uL (0.11-0.59); #Neutrophils 3.9 thou/uL (1.40-6.50); %Basophils 0.8 % (0.0-1.0); %Eosinophils 1.4 % (0.0-10.0); %Lymphocytes 38.5 % (21.0-51.0); %Monocytes 7.3 % (0.0-10.0); Hemoglobin 13.2 g/dL (12.0-16.0); Mean Corpuscular HGB CONC 33.4 g/dL (32.0-36.0); Mean Corpuscular Hemoglobin 32.7 pg (27.0-31.0); Mean Platelet Volume 6.8 fL (7.4-10.4); Platelet Count 182 thou/uL (130-400); RBC Distribution Width 12.7 % (11.5-14.5); Red Blood Cell (RBC) Count 4.04 mill/uL (4.20-5.40); White Blood Cell (WBC) Count 7.6 thou/uL (4.8-10.8)
--- NOTE | 2018-05-18 20:01 | RAD ---
CHEST ONE VIEW: 05/18/18 HISTORY: Bronchitis. COMPARISON: Radiograph 05/12/18. FINDINGS: There is improvement of the bronchial markings from the comparison examination. No confluent air spac e consolidation, pneumothorax or effusion. IMPRESSION: Improving bronchitis. POS: [facility]
[2018-05-18 20:21] LABS: ALT (SGPT) 13 U/L (8-55); AST (SGOT) 13 U/L (5-34); Albumin 3.4 g/dL (3.5-5.0); Alkaline Phosphatase 45 U/L (40-150); BUN (Urea Nitrogen) 6 mg/dL (9.8-20.1); Bilirubin, Total 0.6 mg/dL (0.2-1.2); Calc. Creatinine Clearance 0 mL/min (70-130); Calcium 8.8 mg/dL (7.8-10.44); Estimated GFR-MDRD 27; Globulin 2.9 g/dL (2.4-3.5); Glucose 89 mg/dL (70-105); Protein, Total 6.3 g/dL (6.0-8.3)
[2018-05-18 20:30] LABS: Anion Gap 16 mmol/L (10-20); Carbon Dioxide 35 mmol/L (22-29); Chloride 94 mmol/L (98-107); Potassium 3.4 mmol/L (3.5-5.1); Sodium 142 mmol/L (136-145)
--- NOTE | 2018-05-18 21:15 | CT ---
CT ANGIOGRAM CHEST WITH CONTRAST 05/18/18 HISTORY: Difficulty breathing. Dialysis. Headache. COMPARISON: Chest radiograph same day. FINDINGS: CT angiogram chest performed after the intravenous administration of contrast. 3D rendering is provid ed. No proximal segmental pulmonary arterial filling defect. Thyroid is unremarkable. Pulmonary trunk size is normal. No pericardial effusion. No mediastinal adenopathy. No axillary adenopathy. Incidental note is made of polycystic kidneys replacing most of the renal parenchyma as well as innum erable hepatic cysts. Prior cholecystectomy. No acute osseous abnormality. IMPRESSION: 1. No proximal segmental pulmonary arterial filling defect. 2. No evidence for acute intrathoracic abnormality. 3. Polycystic kidneys and polycystic liver. POS: [facility]
[2018-05-18 21:52] LABS: Bilirubin Negative (Negative); Blood, Urine Small (Negative); Clarity CLEAR (Clear); Glucose, Urine (Dipstick) 100 mg/dL (Negative); Leukocyte Negative (Negative); Nitrite Negative (Negative); Protein, Urine (Dipstick) 100 mg/dL (Neg-Trace); Specific Gravity, Urine 1.006 (1.002-1.036); Urobilinogen 0.2 mg/dL (0.2-1.0); pH, Urine 8.5 (5.0-9.0)
[2018-05-18 21:53] LABS: Bacteria/HPF None Seen HPF (None Seen); Hyaline Casts/LPF 0-3 HYALINE CAST LPF (0-3 Hyaline); RBC/HPF 0-3 HPF (0-3); Squamous Epithelial 0-3 HPF (0-3); WBC/HPF 0-3 HPF (0-3)
[2018-05-18] MEDS ORDERED: Fentanyl 100 MCG/2 ML VIAL ONE (22:25)
[2018-05-18] MEDS ORDERED: Pantoprazole 40 MG VIAL ONE (22:26)
[2018-05-18] MEDS ORDERED: Mag-Al 1200 mg/1200 mg/30 ML UDCUP ONE (22:26)
[2018-05-18] MEDS ORDERED: Lidocaine Viscous Sol 2% 15 ml UD Cup ONE (22:26)
== END 2018-05-18 23:28 | disposition home or self-care (01) ==
LOC: ERS 19:29
DX: R10.13 Epigastric pain (principal); R07.9 Chest pain, unspecified; I48.91 Unspecified atrial fibrillation; Z86.73 Personal history of transient ischemic attack (TIA), and cerebral infarction without residual deficits; J44.9 Chronic obstructive pulmonary disease, unspecified; N18.6 End stage renal disease; Z99.2 Dependence on renal dialysis; F17.210 Nicotine dependence, cigarettes, uncomplicated; Z79.899 Other long term (current) drug therapy; Z79.51 Long term (current) use of inhaled steroids
CPT/HCPCS: 36415; 71045; 71275; 80053; 81003; 81015; 83690; 83880; 84484; 85025; 87040; 87086; 87804; 93005; 96374; 96375; C9113; J3010

== ENCOUNTER 2018-05-20 15:52 | Emergency (ER) | payer MEDICARE, MEDICAID ==
--- NOTE | 2018-05-20 16:50 | RAD ---
FRONTAL VIEW CHEST: INDICATIONS: End stage renal disease with weakness and fever. COMPARISON: 05/18/2018 FINDINGS: The lungs are clear. The cardiac silhouette is normal in size. No effusion or pneumothorax. IMPRESSION: Stable chest. No focal consolidation. POS: [facility]
[2018-05-20 17:11] LABS: #Basophils 0.1 thou/uL (0.0-0.2); #Eosinphils 0.3 thou/uL (0.0-0.7); #Lymphocytes 2.1 thou/uL (1.20-3.40); #Monocytes 0.4 thou/uL (0.11-0.59); #Neutrophils 2.5 thou/uL (1.40-6.50); %Basophils 1.3 % (0.0-1.0); %Eosinophils 4.8 % (0.0-10.0); %Monocytes 8.4 % (0.0-10.0); %Neutrophils 46.4 % (42.0-75.0); Hemoglobin 12.4 g/dL (12.0-16.0); Mean Corpuscular HGB CONC 32.9 g/dL (32.0-36.0); Mean Corpuscular Hemoglobin 32.8 pg (27.0-31.0); Mean Corpuscular Volume 99.6 fL (78.0-98.0); Mean Platelet Volume 7.2 fL (7.4-10.4); Platelet Count 171 thou/uL (130-400); RBC Distribution Width 12.9 % (11.5-14.5); Red Blood Cell (RBC) Count 3.77 mill/uL (4.20-5.40); White Blood Cell (WBC) Count 5.3 thou/uL (4.8-10.8)
[2018-05-20 17:42] LABS: ALT (SGPT) 11 U/L (8-55); AST (SGOT) 17 U/L (5-34); Albumin 3.2 g/dL (3.5-5.0); Alkaline Phosphatase 40 U/L (40-150); Anion Gap 16 mmol/L (10-20); BUN (Urea Nitrogen) 25 mg/dL (9.8-20.1); Bilirubin, Total 0.3 mg/dL (0.2-1.2); CK (CPK) 77 U/L (29-168); Calc. Creatinine Clearance 0 mL/min (70-130); Calcium 8.5 mg/dL (7.8-10.44); Carbon Dioxide 25 mmol/L (22-29); Chloride 101 mmol/L (98-107); Estimated GFR-MDRD 7; Globulin 2.8 g/dL (2.4-3.5); Glucose 83 mg/dL (70-105); Potassium 4.6 mmol/L (3.5-5.1); Sodium 137 mmol/L (136-145)
[2018-05-20 17:46] LABS: Bilirubin Negative (Negative); Blood, Urine Small (Negative); Clarity CLEAR (Clear); Glucose, Urine (Dipstick) 100 mg/dL (Negative); Leukocyte Negative (Negative); Nitrite Negative (Negative); Protein, Urine (Dipstick) 100 mg/dL (Neg-Trace); Specific Gravity, Urine 1.009 (1.002-1.036); Urobilinogen 0.2 mg/dL (0.2-1.0); pH, Urine 8.5 (5.0-9.0)
[2018-05-20 17:51] LABS: Bacteria/HPF None Seen HPF (None Seen); Hyaline Casts/LPF 0-3 HYALINE CAST LPF (0-3 Hyaline); Pathc Cast-AUWi Flag 0.58 (0-2.49); RBC/HPF 0-3 HPF (0-3); Squamous Epithelial None Seen HPF (0-3); WBC/HPF None Seen HPF (0-3)
== END 2018-05-20 18:52 | disposition home or self-care (01) ==
LOC: ERS 15:52
DX: R53.1 Weakness (principal); I48.91 Unspecified atrial fibrillation; J44.9 Chronic obstructive pulmonary disease, unspecified; N18.6 End stage renal disease; Z99.2 Dependence on renal dialysis; Z86.73 Personal history of transient ischemic attack (TIA), and cerebral infarction without residual deficits; Z79.899 Other long term (current) drug therapy
CPT/HCPCS: 36415; 71045; 80053; 81003; 81015; 82550; 84484; 85025; 93005

== ENCOUNTER 2018-06-28 17:41 | Emergency (ER) | payer MEDICARE, MEDICAID ==
--- NOTE | 2018-06-28 18:52 | RAD ---
LEFT KNEE FOUR VIEWS: HISTORY: Slipped and fell on knee. FINDINGS: There are no signs of fracture, dislocation, or joint effusion. Minimal arthritic change is seen. IMPRESSION: No evidence of fracture. POS: [facility]
--- NOTE | 2018-06-28 18:56 | RAD ---
LEFT WRIST THREE VIEWS: HISTORY: Slipped and fell. Injured wrist and knee. FINDINGS: There are marked arthritic changes of the first carpometacarpal joint space with subluxation of the f irst metacarpal which is probably on the basis of the advanced arthritic change in this region. I do not see any definite signs of an acute fracture. IMPRESSION: No evidence of fracture. POS: [facility]
[2018-06-28] MEDS ORDERED: traMADol HCl 50 MG TAB ONE ×2 (19:39)
== END 2018-06-28 20:00 | disposition home or self-care (01) ==
LOC: ERS 17:41
DX: S63.502A Unspecified sprain of left wrist, initial encounter (principal); S83.92XA Sprain of unspecified site of left knee, initial encounter; J44.9 Chronic obstructive pulmonary disease, unspecified; N18.6 End stage renal disease; F17.210 Nicotine dependence, cigarettes, uncomplicated; I48.91 Unspecified atrial fibrillation; Z86.73 Personal history of transient ischemic attack (TIA), and cerebral infarction without residual deficits; W01.0XXA Fall on same level from slipping, tripping and stumbling without subsequent striking against object, initial encounter

== ENCOUNTER 2018-07-10 08:36 | Emergency (ER) | payer MEDICARE, MEDICAID ==
[2018-07-10 09:27] LABS: #Basophils 0.1 thou/uL (0.0-0.2); #Eosinphils 0.3 thou/uL (0.0-0.7); #Lymphocytes 1.9 thou/uL (1.20-3.40); #Monocytes 0.3 thou/uL (0.11-0.59); #Neutrophils 2.4 thou/uL (1.40-6.50); %Basophils 1.3 % (0.0-1.0); %Eosinophils 6.3 % (0.0-10.0); %Lymphocytes 37.9 % (21.0-51.0); %Monocytes 6.5 % (0.0-10.0); Hemoglobin 13.8 g/dL (12.0-16.0); Mean Corpuscular HGB CONC 31.6 g/dL (32.0-36.0); Mean Corpuscular Hemoglobin 32.6 pg (27.0-31.0); Mean Platelet Volume 6.8 fL (7.4-10.4); Platelet Count 242 thou/uL (130-400); RBC Distribution Width 13.5 % (11.5-14.5); Red Blood Cell (RBC) Count 4.23 mill/uL (4.20-5.40)
[2018-07-10 09:55] LABS: ALT (SGPT) 10 U/L (8-55); AST (SGOT) 9 U/L (5-34); Alkaline Phosphatase 42 U/L (40-150); Anion Gap 19 mmol/L (10-20); BUN (Urea Nitrogen) 38 mg/dL (9.8-20.1); Bilirubin, Total 0.5 mg/dL (0.2-1.2); Calc. Creatinine Clearance 0 mL/min (70-130); Calcium 9.7 mg/dL (7.8-10.44); Carbon Dioxide 23 mmol/L (22-29); Chloride 101 mmol/L (98-107); Estimated GFR-MDRD 5; Glucose 72 mg/dL (70-105); Lipase 31 U/L (8-78); Potassium 5.4 mmol/L (3.5-5.1); Sodium 138 mmol/L (136-145)
[2018-07-10] MEDS ORDERED: ISOVUE-370 76%-LOCM 1 ML ONE (09:59)
[2018-07-10] MEDS ORDERED: Fentanyl 100 MCG/2 ML VIAL ONE (10:16)
[2018-07-10] MEDS ORDERED: Ondansetron PF 4 MG/2 ML Vial ONE (11:00)
--- NOTE | 2018-07-10 11:24 | CT ---
CT ABDOMEN AND PELVIS WITH CONTRAST: Date: 07/10/18 COMPARISON: None. HISTORY: Intermittent lower abdominal pain for a year. TECHNIQUE: Multiple contiguous axial images were obtained in a CT of the abdomen and pelvis with contrast. Coron al reformats were performed. FINDINGS: There are innumerable hypodensities in the kidneys which represent cysts. There are also hypodensitie s in the liver consistent with cysts. The gallbladder has been removed. There are nonobstructing calc ifications in both kidneys measuring up to 9.0 mm in size. Scattered diverticula are seen in the colon. No free air, free fluid, or stranding changes are seen i n the abdomen or pelvis. The small bowel and appendix are unremarkable. The reproductive organs are u nremarkable. Atherosclerotic calcifications are seen in the aorta. No abdominal or pelvic lymphadenopathy are seen . Mild degenerative changes are seen in the spine. The visualized inferior thorax and abdominal wall so ft tissues are unremarkable. IMPRESSION: 1. Polycystic kidney and liver disease. 2. Nonobstructing bilateral renal calcifications. 3. Diverticulosis without evidence of acute diverticulitis. POS: ROXY
[2018-07-10 11:37] LABS: Bilirubin Negative (Negative); Blood, Urine Small (Negative); Clarity CLEAR (Clear); Glucose, Urine (Dipstick) 100 mg/dL (Negative); Leukocyte Negative (Negative); Nitrite Negative (Negative); Protein, Urine (Dipstick) 100 mg/dL (Neg-Trace); Specific Gravity, Urine 1.007 (1.002-1.036); Urobilinogen 0.2 mg/dL (0.2-1.0)
[2018-07-10 11:39] LABS: Bacteria/HPF None Seen HPF (None Seen); Hyaline Casts/LPF 0-3 HYALINE CAST LPF (0-3 Hyaline); RBC/HPF 0-3 HPF (0-3); Squamous Epithelial 0-3 HPF (0-3); WBC/HPF 0-3 HPF (0-3)
[2018-07-10] MEDS ORDERED: traMADol HCl 50 MG TAB ONE (12:49)
== END 2018-07-10 14:49 | disposition left against medical advice (07) ==
LOC: ERS 08:36
DX: R10.30 Lower abdominal pain, unspecified (principal); J44.9 Chronic obstructive pulmonary disease, unspecified; I48.91 Unspecified atrial fibrillation; N18.6 End stage renal disease; F17.210 Nicotine dependence, cigarettes, uncomplicated; Z86.73 Personal history of transient ischemic attack (TIA), and cerebral infarction without residual deficits
CPT/HCPCS: 74177; 80053; 81003; 81015; 83690; 85025; 96372; 96374; 96375; J0500; J2405; J3010; Q9966

== ENCOUNTER 2021-01-18 05:31 | Emergency (ER) | payer MEDICARE, MEDICAID, OTHER ==
[2021-01-18 06:02] LABS: #Basophils 0.1 thou/uL (0.0-0.2); #Eosinphils 0.2 thou/uL (0.0-0.7); #Monocytes 0.4 thou/uL (0.11-0.59); #Neutrophils 3.2 thou/uL (1.40-6.50); %Basophils 0.9 % (0.0-1.0); %Eosinophils 3.4 % (0.0-10.0); %Lymphocytes 34.4 % (21.0-51.0); %Monocytes 6.4 % (0.0-10.0); %Neutrophils 54.9 % (42.0-75.0); Hemoglobin 10.2 g/dL (12.0-16.0); Mean Corpuscular Hemoglobin 34.5 pg (27.0-31.0); Platelet Count 150 thou/uL (130-400); RBC Distribution Width 13.1 % (11.5-14.5); Red Blood Cell (RBC) Count 2.95 mill/uL (4.20-5.40); White Blood Cell (WBC) Count 5.8 thou/uL (4.8-10.8)
[2021-01-18 06:22] LABS: ALT (SGPT) 12 U/L (8-55); AST (SGOT) 15 U/L (5-34); Albumin 3.4 g/dL (3.5-5.0); Alkaline Phosphatase 46 U/L (40-110); Anion Gap 18 mmol/L (10-20); BUN (Urea Nitrogen) 41 mg/dL (9.8-20.1); Bilirubin, Total 0.4 mg/dL (0.2-1.2); Calc. Creatinine Clearance 0 mL/min (70-130); Calcium 9.6 mg/dL (7.8-10.44); Carbon Dioxide 23 mmol/L (22-29); Chloride 103 mmol/L (98-107); Glucose 85 mg/dL (70-105); Potassium 5.1 mmol/L (3.5-5.1); Protein, Total 6.4 g/dL (6.0-8.3); Sodium 139 mmol/L (136-145)
[2021-01-18] MEDS ORDERED: Nitroglycerin 2% Ointment 1 INCH/1 GM Packet ONE (08:28)
[2021-01-18 11:14] LABS: SARS-CoV-2 NAA Rapid Test Not Detected (NotDetected)
== END 2021-01-18 10:26 | disposition home or self-care (01) ==
LOC: ERS 05:31
DX: J44.1 Chronic obstructive pulmonary disease with (acute) exacerbation (principal); Z20.822 Contact with and (suspected) exposure to COVID-19; Z79.899 Other long term (current) drug therapy; I48.91 Unspecified atrial fibrillation; N18.6 End stage renal disease; Z99.2 Dependence on renal dialysis; F17.210 Nicotine dependence, cigarettes, uncomplicated
CPT/HCPCS: 71045; 80053; 84484; 85025; 93005; U0002; 36415

== ENCOUNTER 2021-05-10 18:34 | Inpatient (IN) | payer MEDICARE, MEDICAID ==
[~2021-05-10 18:34] MED LIST changes: -Iopamidol 370 76% 100 ML VIAL ONE; +Iopamidol-370 76% 500 ML 1 ML ONE
[2021-05-10] MEDS ORDERED: Calcium Chloride 1 GM/10 ML Abboject SYRINGE ONE (18:50)
[2021-05-10] MEDS ORDERED: Propofol 1,000 MG/100 ML VIAL IV ONE (18:53)
[2021-05-10 19:06] LABS: #Basophils 0.1 thou/uL (0.0-0.2); #Eosinphils 0.2 thou/uL (0.0-0.7); #Lymphocytes 2.3 thou/uL (1.20-3.40); #Monocytes 0.3 thou/uL (0.11-0.59); #Neutrophils 6.1 thou/uL (1.40-6.50); %Basophils 0.6 % (0.0-1.0); %Eosinophils 2.3 % (0.0-10.0); %Lymphocytes 26.1 % (21.0-51.0); %Monocytes 3.2 % (0.0-10.0); %Neutrophils 67.9 % (42.0-75.0); Hemoglobin 10.8 g/dL (12.0-16.0); Mean Corpuscular HGB CONC 32.6 g/dL (32.0-36.0); Mean Corpuscular Hemoglobin 34.7 pg (27.0-31.0); Mean Platelet Volume 7.1 fL (7.4-10.4); Platelet Count 227 thou/uL (130-400); RBC Distribution Width 14.5 % (11.5-14.5); Red Blood Cell (RBC) Count 3.13 mill/uL (4.20-5.40); White Blood Cell (WBC) Count 8.9 thou/uL (4.8-10.8)
[2021-05-10 19:15] LABS: INR-International Normal Ratio 1.1; Prothrombin Time 14.6 sec (12.0-14.7)
[2021-05-10 19:16] LABS: PTT 34.7 sec (22.9-36.1)
[2021-05-10 19:24] LABS: MDiff Complete? YES; Macrocytosis SLIGHT = 6-15 cells (100X) (0-5/hpf); Platelet Morphology Comment Appears Adequate; Polychromasia SLIGHT = 2-3 cells (100X) (0-2/hpf)
[2021-05-10 19:26] LABS: ALT (SGPT) 50 U/L (8-55); AST (SGOT) 87 U/L (5-34); Albumin 3.4 g/dL (3.5-5.0); Alkaline Phosphatase 67 U/L (40-110); Anion Gap 19 mmol/L (10-20); BUN (Urea Nitrogen) 10 mg/dL (9.8-20.1); Bilirubin, Total 0.8 mg/dL (0.2-1.2); Calc. Creatinine Clearance 0 mL/min (70-130); Calcium 9.2 mg/dL (7.8-10.44); Carbon Dioxide 31 mmol/L (22-29); Chloride 94 mmol/L (98-107); Glucose 135 mg/dL (70-105); Potassium 3.8 mmol/L (3.5-5.1); Protein, Total 6.4 g/dL (6.0-8.3); Sodium 140 mmol/L (136-145)
[2021-05-10 19:33] LABS: Actual Bicarbonate (HCO3a) 25.1 mEq/L (22-28); Analyzer IN Cardio ER; Base Excess (BEa) 3.8 mEq/L (-2.0 to +3.0); CO2 Tension 27.1 mmHg (35.0-45.0); Calcium, Ionized (arterial) 1.06 mmol/L (1.12-1.30); Carboxyhemoglobin (COHb) 0.3 gm% (0.0-3.0); Hemoglobin (Hb) 10.3 g/dL (12.0-16.0); O2 Tension (PaO2), arterial 381.5 mmHg (80.0-100.0); Potassium - ABG Lab 3.01 mmol/L (3.70-5.30)
[2021-05-10 19:45] LABS: Bacteria/HPF None Seen HPF (None Seen); Bilirubin Negative (Negative); Blood, Urine Trace (Negative); Clarity Clear (Clear); Glucose, Urine (Dipstick) 50 mg/dL (Negative); Ketone, Urine Trace mg/dL (Negative); Leukocyte Negative Leu/uL (Negative); Nitrite Negative (Negative); Protein, Urine (Dipstick) 300 mg/dL (Neg-Trace); Specific Gravity, Urine 1.008 (1.002-1.036); Squamous Epithelial 0-3 HPF (0-3); Urobilinogen Normal mg/dL (Less than 2); pH, Urine 8.5 (5.0-9.0)
[2021-05-10 20:00] LABS: pH, Arterial 7.58 (7.35-7.45)
[2021-05-10 20:01] LABS: ALV-art Gradient 297.625 mmHg (0-20); Puncture Site LBA
[2021-05-10] MEDS ORDERED: Midazolam HCl 2 mg/2 ml Vial ONE (20:07)
[2021-05-10] MEDS ORDERED: Furosemide 100 MG/10 ML VIAL ONE (20:07)
[2021-05-10 20:39] LABS: SARS-CoV-2 NAA Rapid Test Not Detected (NotDetected)
[2021-05-10 20:46] LABS: Magnesium 1.9 mg/dL (1.6-2.6)
[2021-05-10] MEDS ORDERED: Ondansetron PF 4 MG/2 ML Vial IVP PRN ×2 (21:45→22:50)
[2021-05-10] MEDS ORDERED: Ondansetron ODT 4 MG TAB SL PRN (21:45)
[2021-05-10] MEDS ORDERED: Acetaminophen 325 MG TAB PO PRN (21:45)
[2021-05-10 22:05] LABS: Troponin I 0.257 ng/mL (< 0.028)
[2021-05-10] MEDS ORDERED: Lorazepam 2 MG/ML VIAL SLOW IVP PRN (23:45)
[2021-05-10] MEDS ORDERED: DISCONTINUE PREVIOUS NARCOTIC PAIN MEDICATIONS AND BENZODIAZEPINES FS SCH (23:45)
[2021-05-10] MEDS ORDERED: Propofol BOLUS 1,000 MG/100 ML VIAL IV PRN (23:45)
[2021-05-10] MEDS ORDERED: Fentanyl BOLUS 250 ML IVPB PRN (23:45)
[2021-05-10] MEDS ORDERED: Morphine 2 MG/ML VIAL SLOW IVP PRN (23:45)
[2021-05-10] MEDS ORDERED: fentaNYL Citrate/PF 2,000 MCG in Sodium Chloride 0.9% 60 ML IV SCH (23:45)
[2021-05-11 01:12] LABS: Critical Call Chem Troponin I ICU.RB; Troponin I 0.384 ng/mL (< 0.028)
[2021-05-11 04:31] LABS: #Lymphocytes 1.1 thou/uL (1.20-3.40); #Monocytes 0.4 thou/uL (0.11-0.59); #Neutrophils 4.3 thou/uL (1.40-6.50); %Basophils 0.1 % (0.0-1.0); %Eosinophils 0.4 % (0.0-10.0); %Lymphocytes 18.3 % (21.0-51.0); %Monocytes 7.1 % (0.0-10.0); %Neutrophils 74.1 % (42.0-75.0); Hemoglobin 9.2 g/dL (12.0-16.0); Mean Corpuscular HGB CONC 32.4 g/dL (32.0-36.0); Mean Platelet Volume 7.4 fL (7.4-10.4); Platelet Count 193 thou/uL (130-400); RBC Distribution Width 14.5 % (11.5-14.5); Red Blood Cell (RBC) Count 2.71 mill/uL (4.20-5.40); White Blood Cell (WBC) Count 5.8 thou/uL (4.8-10.8)
[2021-05-11 04:48] LABS: Anion Gap 18 mmol/L (10-20); BUN (Urea Nitrogen) 15 mg/dL (9.8-20.1); Calc. Creatinine Clearance 14 mL/min (70-130); Calcium 9.3 mg/dL (7.8-10.44); Carbon Dioxide 31 mmol/L (22-29); Chloride 95 mmol/L (98-107); Glucose 80 mg/dL (70-105); Potassium 3.7 mmol/L (3.5-5.1); Sodium 140 mmol/L (136-145)
[2021-05-11] MEDS: Propofol 1,000 MG/100 ML VIAL IV PRN ×2 (06:25→12:03)
[2021-05-11 08:26] LABS: Actual Bicarbonate (HCO3a) 29.2 mEq/L (22-28); Base Excess (BEa) 6.9 mEq/L (-2.0 to +3.0); Calcium, Ionized (arterial) 1.07 mmol/L (1.12-1.30); Hemoglobin (Hb) 8.1 g/dL (12.0-16.0); Potassium - ABG Lab 3.83 mmol/L (3.70-5.30)
[2021-05-11 08:28] LABS: pH, Arterial 7.58 (7.35-7.45)
[2021-05-11 08:29] LABS: Puncture Site LB
[2021-05-11] MEDS: Famotidine 20 MG TAB PO SCH (09:43)
[2021-05-11] MEDS: Heparin 5,000 UNITS/ML VIAL SC SCH ×4 (09:43→20:05)
[2021-05-11] MEDS ORDERED: Magnesium 2 GM/50 ML 2 GM in Premix Bag 1 BAG IVPB SCH (11:15)
[2021-05-11] MEDS ORDERED: Fentanyl 100 MCG/2 ML VIAL SLOW IVP PRN (11:28)
[2021-05-11] MEDS ORDERED: Ventilator Sedation Protocol 1 EACH FS SCH (11:30)
[2021-05-11] MEDS ORDERED: Morphine 4 MG/ML VIAL SLOW IVP PRN (13:08)
[2021-05-11] MEDS ORDERED: Propofol BOLUS 1,000 MG/100 ML VIAL IV PRN (13:15)
[2021-05-11] MEDS ORDERED: DISCONTINUE PREVIOUS NARCOTIC PAIN MEDICATIONS AND BENZODIAZEPINES FS SCH (13:15)
[2021-05-11] MEDS ORDERED: Fentanyl CADD 100 ML IV SCH (13:15)
[2021-05-11] MEDS ORDERED: Lorazepam 2 MG/ML VIAL SLOW IVP PRN (13:15)
[2021-05-11] MEDS ORDERED: Fentanyl BOLUS 250 ML IVPB PRN (13:15)
[2021-05-11] MEDS ORDERED: Propofol 1,000 MG/100 ML VIAL IV PRN (13:15)
[2021-05-11] MEDS: Carvedilol 3.125 MG TAB PER TUBE SCH (16:50)
[2021-05-12 04:37] LABS: #Eosinphils 0.2 thou/uL (0.0-0.7); #Lymphocytes 1.9 thou/uL (1.20-3.40); #Monocytes 0.4 thou/uL (0.11-0.59); #Neutrophils 3.8 thou/uL (1.40-6.50); %Basophils 0.6 % (0.0-1.0); %Eosinophils 3.1 % (0.0-10.0); %Lymphocytes 29.3 % (21.0-51.0); %Monocytes 6.7 % (0.0-10.0); %Neutrophils 60.3 % (42.0-75.0); Hemoglobin 8.9 g/dL (12.0-16.0); Mean Corpuscular HGB CONC 32.6 g/dL (32.0-36.0); Mean Corpuscular Hemoglobin 34.3 pg (27.0-31.0); Mean Platelet Volume 7.7 fL (7.4-10.4); Platelet Count 189 thou/uL (130-400); RBC Distribution Width 14.5 % (11.5-14.5); Red Blood Cell (RBC) Count 2.59 mill/uL (4.20-5.40); White Blood Cell (WBC) Count 6.4 thou/uL (4.8-10.8)
[2021-05-12 05:00] LABS: Anion Gap 20 mmol/L (10-20); BUN (Urea Nitrogen) 25 mg/dL (9.8-20.1); Calc. Creatinine Clearance 10 mL/min (70-130); Calcium 8.5 mg/dL (7.8-10.44); Carbon Dioxide 29 mmol/L (22-29); Cardiac Risk 2.7 (Less than 4.5); Chloride 94 mmol/L (98-107); Cholesterol 115 mg/dl (< 200 Desired); Glucose 60 mg/dL (70-105); HDL Cholesterol 43 mg/dL (>60 Neg Risk); LDL Cholesterol, Calculated 45 mg/dL; Potassium 3.9 mmol/L (3.5-5.1); Sodium 139 mmol/L (136-145); Triglycerides 136 mg/dL (Less than 150)
[2021-05-12] MEDS: Heparin 5,000 UNITS/ML VIAL SC SCH ×4 (09:43→20:40)
[2021-05-12] MEDS ORDERED: traMADol HCl 50 MG TAB PER TUBE PRN (09:59)
[2021-05-12] MEDS: Famotidine 20 MG TAB PO SCH (10:02)
[2021-05-12] MEDS: Carvedilol 3.125 MG TAB PER TUBE SCH (10:04)
[2021-05-12 11:58] LABS: HBSAg Index 0.18 S/CO (0-0.99); Hep B Surf Ag Non-Reactive S/CO (NonReactive)
[2021-05-12] MEDS ORDERED: Zolpidem Tartrate 5 MG TAB PO PRN (13:00)
[2021-05-12] MEDS ORDERED: Naloxone HCl 0.4 mg/ml Vial IV PRN (13:00)
[2021-05-12] MEDS ORDERED: Promethazine HCl 25 MG/ML VIAL IM PRN (13:00)
[2021-05-12] MEDS ORDERED: Fentanyl CADD 100 ML IVPB SCH (13:00)
[2021-05-12] MEDS ORDERED: diphenhydrAMINE 25 MG CAP PO PRN (13:00)
[2021-05-12] MEDS ORDERED: diphenhydrAMINE 50 MG/ML VIAL IM/IV PRN (13:00)
[2021-05-12] MEDS: Ondansetron PF 4 MG/2 ML Vial IVP PRN (15:42)
[2021-05-12] MEDS: tiZANidine HCl 4 MG TAB PER TUBE SCH ×2 (15:42→20:39)
[2021-05-12] MEDS: Carvedilol 3.125 MG TAB PO SCH ×2 (17:30→18:16)
[2021-05-12] MEDS: Amiodarone 200 MG TAB PO SCH (20:38)
[2021-05-13] MEDS: ALPRAZolam 0.25 MG TAB PO PRN ×2 (02:38→17:01)
[2021-05-13] MEDS ORDERED: Prevnar 13-Val Conj/PF 0.5 ML SYRINGE IM ONE (09:00)
[2021-05-13] MEDS ORDERED: FLU VACC QS2021-22(6MOS UP)/PF 60 MCG/0.5 ML SYRINGE IM ONE (09:00)
[2021-05-13] MEDS: Famotidine 20 MG TAB PO SCH (09:41)
[2021-05-13] MEDS: Carvedilol 3.125 MG TAB PO SCH ×2 (09:41→17:00)
[2021-05-13] MEDS: Amiodarone 200 MG TAB PO SCH (09:41)
[2021-05-13] MEDS: tiZANidine HCl 4 MG TAB PER TUBE SCH ×3 (09:42→20:36)
[2021-05-13] MEDS: Heparin 5,000 UNITS/ML VIAL SC SCH ×2 (09:42→13:44)
[2021-05-13 10:42] LABS: #Basophils 0.1 thou/uL (0.0-0.2); #Eosinphils 0.3 thou/uL (0.0-0.7); #Lymphocytes 1.1 thou/uL (1.20-3.40); #Monocytes 0.7 thou/uL (0.11-0.59); #Neutrophils 5.2 thou/uL (1.40-6.50); %Eosinophils 4.7 % (0.0-10.0); %Lymphocytes 14.4 % (21.0-51.0); %Monocytes 9.1 % (0.0-10.0); %Neutrophils 70.9 % (42.0-75.0); Hemoglobin 9.3 g/dL (12.0-16.0); Platelet Count 206 thou/uL (130-400); RBC Distribution Width 14.6 % (11.5-14.5); Red Blood Cell (RBC) Count 2.73 mill/uL (4.20-5.40); White Blood Cell (WBC) Count 7.3 thou/uL (4.8-10.8)
[2021-05-13 11:02] LABS: Anion Gap 19 mmol/L (10-20); BUN (Urea Nitrogen) 19 mg/dL (9.8-20.1); Calc. Creatinine Clearance 15 mL/min (70-130); Calcium 9.3 mg/dL (7.8-10.44); Carbon Dioxide 27 mmol/L (22-29); Chloride 94 mmol/L (98-107); Glucose 79 mg/dL (70-105); Potassium 4.2 mmol/L (3.5-5.1); Sodium 136 mmol/L (136-145)
[2021-05-13] MEDS ORDERED: Non-Formulary Item 1 EACH (Albuterol Sulfate Hfa (Or) 200 PUFF Inh) INH PRN (13:52)
[2021-05-13] MEDS ORDERED: Polyethylene Glycol 3350 17 GM Packet PO PRN (13:52)
[2021-05-13] MEDS ORDERED: Albuterol 200 PUFF (6.7GM INHALER) INH PRN (14:06)
[2021-05-13] MEDS: ALPRAZolam 1 MG TAB PO PRN (17:57)
[2021-05-14] MEDS: Folic Acid/Vit B Comp W-C PO SCH (08:02)
[2021-05-14] MEDS: Megestrol Acetate 800 MG/20 ML UDCUP PO SCH (08:02)
[2021-05-14] MEDS: Famotidine 20 MG TAB PO SCH (08:02)
[2021-05-14] MEDS: Senokot 8.6 MG TAB PO SCH (08:02)
[2021-05-14] MEDS: tiZANidine HCl 4 MG TAB PER TUBE SCH ×3 (08:02→21:53)
[2021-05-14] MEDS: Atorvastatin Calcium 40 MG TAB PO SCH (08:03)
[2021-05-14] MEDS: Carvedilol 3.125 MG TAB PO SCH ×2 (08:03→16:15)
[2021-05-14] MEDS: FLUoxetine HCl 20 MG CAP PO SCH (08:03)
[2021-05-14] MEDS ORDERED: UDCUP PO SCH (09:00)
[2021-05-14] MEDS ORDERED: Non-Formulary Item 1 EACH (B,C/Folic/Zinc/Selenometh/D3/E [Renaplex-D Tablet] 1 EACH Tabl PO SCH (09:00)
[2021-05-14] MEDS ORDERED: Senokot 8.6 MG TAB PO SCH (09:00)
[2021-05-14] MEDS ORDERED: MEGESTROL ACETATE 400 MG/10 ML PO SCH (09:00)
[2021-05-14 09:21] LABS: Anion Gap 17 mmol/L (10-20); BUN (Urea Nitrogen) 30 mg/dL (9.8-20.1); Calc. Creatinine Clearance 11 mL/min (70-130); Calcium 9.7 mg/dL (7.8-10.44); Carbon Dioxide 29 mmol/L (22-29); Chloride 91 mmol/L (98-107); Glucose 93 mg/dL (70-105); Potassium 4.4 mmol/L (3.5-5.1); Sodium 133 mmol/L (136-145)
[2021-05-14 09:25] LABS: Hemoglobin 10.7 g/dL (12.0-16.0); Platelet Count 263 thou/uL (130-400)
[2021-05-14] MEDS: ALPRAZolam 0.25 MG TAB PO PRN (16:15)
[2021-05-14] MEDS: ALPRAZolam 1 MG TAB PO PRN (21:53)
[2021-05-15 05:09] LABS: Anion Gap 15 mmol/L (10-20); BUN (Urea Nitrogen) 15 mg/dL (9.8-20.1); Calc. Creatinine Clearance 18 mL/min (70-130); Calcium 8.9 mg/dL (7.8-10.44); Carbon Dioxide 28 mmol/L (22-29); Chloride 94 mmol/L (98-107); Glucose 97 mg/dL (70-105); Potassium 3.8 mmol/L (3.5-5.1); Sodium 133 mmol/L (136-145)
[2021-05-15] MEDS: Senokot 8.6 MG TAB PO SCH (09:20)
[2021-05-15] MEDS: Carvedilol 3.125 MG TAB PO SCH ×2 (09:20→15:14)
[2021-05-15] MEDS: Atorvastatin Calcium 40 MG TAB PO SCH (09:20)
[2021-05-15] MEDS: Megestrol Acetate 800 MG/20 ML UDCUP PO SCH (09:20)
[2021-05-15] MEDS: FLUoxetine HCl 20 MG CAP PO SCH (09:21)
[2021-05-15] MEDS: Folic Acid/Vit B Comp W-C PO SCH (09:21)
[2021-05-15] MEDS: Famotidine 20 MG TAB PO SCH (09:21)
[2021-05-15] MEDS: tiZANidine HCl 4 MG TAB PER TUBE SCH ×3 (09:21→20:35)
[2021-05-16] MEDS: Acetaminophen 325 MG TAB PO PRN (01:03)
[2021-05-16] MEDS: ALPRAZolam 1 MG TAB PO PRN (01:06)
[2021-05-16] MEDS: Megestrol Acetate 800 MG/20 ML UDCUP PO SCH (10:08)
[2021-05-16] MEDS: Folic Acid/Vit B Comp W-C PO SCH (10:11)
[2021-05-16] MEDS: Carvedilol 3.125 MG TAB PO SCH ×2 (10:11→15:57)
[2021-05-16] MEDS: FLUoxetine HCl 20 MG CAP PO SCH (10:11)
[2021-05-16] MEDS: Famotidine 20 MG TAB PO SCH (10:12)
[2021-05-16] MEDS: tiZANidine HCl 4 MG TAB PER TUBE SCH ×3 (10:12→21:31)
[2021-05-16] MEDS: Senokot 8.6 MG TAB PO SCH (10:13)
[2021-05-16] MEDS: Atorvastatin Calcium 40 MG TAB PO SCH (10:13)
[2021-05-16] MEDS: Ondansetron PF 4 MG/2 ML Vial IVP PRN (17:23)
[2021-05-16] MEDS: ALPRAZolam 0.25 MG TAB PO PRN (21:31)
[2021-05-17 01:33] LABS: Troponin I 0.065 ng/mL (< 0.028)
[2021-05-17] MEDS: Acetaminophen 325 MG TAB PO PRN (04:08)
[2021-05-17] MEDS: FLUoxetine HCl 20 MG CAP PO SCH (09:41)
[2021-05-17] MEDS: Folic Acid/Vit B Comp W-C PO SCH (09:41)
[2021-05-17] MEDS: tiZANidine HCl 4 MG TAB PER TUBE SCH ×3 (09:41→20:39)
[2021-05-17] MEDS: Carvedilol 3.125 MG TAB PO SCH ×2 (09:41→17:14)
[2021-05-17] MEDS: Atorvastatin Calcium 40 MG TAB PO SCH (09:42)
[2021-05-17] MEDS: Senokot 8.6 MG TAB PO SCH (09:42)
[2021-05-17] MEDS: Famotidine 20 MG TAB PO SCH (09:42)
[2021-05-17] MEDS: Megestrol Acetate 800 MG/20 ML UDCUP PO SCH (09:42)
[2021-05-17] MEDS: ALPRAZolam 0.25 MG TAB PO PRN (11:42)
[2021-05-17] MEDS ORDERED: HYDROcodone/Acetaminophen 10/325 mg Tablet PO PRN (12:31)
[2021-05-17] MEDS ORDERED: traMADol HCl 50 MG TAB PO PRN (12:31)
[2021-05-17] MEDS: HYDROcodone/Acetaminophen 10/325 mg Tablet PO PRN ×2 (13:39→20:39)
[2021-05-17] MEDS: Fentanyl 100 MCG/2 ML VIAL SLOW IVP PRN (16:10)
[2021-05-17] MEDS: ALPRAZolam 1 MG TAB PO PRN (20:40)
[2021-05-18] MEDS: HYDROcodone/Acetaminophen 10/325 mg Tablet PO PRN (03:06)
[2021-05-18] MEDS: Fentanyl 100 MCG/2 ML VIAL SLOW IVP PRN ×6 (04:06→22:28)
[2021-05-18 05:20] LABS: #Eosinphils 0.2 thou/uL (0.0-0.7); #Lymphocytes 1.6 thou/uL (1.20-3.40); #Monocytes 0.7 thou/uL (0.11-0.59); #Neutrophils 2.7 thou/uL (1.40-6.50); %Basophils 0.8 % (0.0-1.0); %Eosinophils 3.1 % (0.0-10.0); %Lymphocytes 30.4 % (21.0-51.0); %Monocytes 13.1 % (0.0-10.0); %Neutrophils 52.5 % (42.0-75.0); Mean Corpuscular Hemoglobin 33.2 pg (27.0-31.0); Mean Platelet Volume 6.3 fL (7.4-10.4); Platelet Count 276 thou/uL (130-400); RBC Distribution Width 14.8 % (11.5-14.5); White Blood Cell (WBC) Count 5.1 thou/uL (4.8-10.8)
[2021-05-18 05:37] LABS: ALT (SGPT) 18 U/L (8-55); AST (SGOT) 29 U/L (5-34); Albumin 2.9 g/dL (3.5-5.0); Alkaline Phosphatase 55 U/L (40-110); Anion Gap 15 mmol/L (10-20); BUN (Urea Nitrogen) 14 mg/dL (9.8-20.1); Bilirubin, Total 0.5 mg/dL (0.2-1.2); Calc. Creatinine Clearance 17 mL/min (70-130); Calcium 9.5 mg/dL (7.8-10.44); Carbon Dioxide 29 mmol/L (22-29); Chloride 96 mmol/L (98-107); Globulin 3.3 g/dL (2.4-3.5); Glucose 88 mg/dL (70-105); Magnesium 1.8 mg/dL (1.6-2.6); Phosphorus 3.5 mg/dL (2.3-4.7); Potassium 3.7 mmol/L (3.5-5.1); Protein, Total 6.2 g/dL (6.0-8.3); Sodium 136 mmol/L (136-145)
[2021-05-18] MEDS: Carvedilol 6.25 MG TAB PO SCH ×2 (08:46→15:40)
[2021-05-18] MEDS: Megestrol Acetate 800 MG/20 ML UDCUP PO SCH (08:47)
[2021-05-18] MEDS: tiZANidine HCl 4 MG TAB PER TUBE SCH ×3 (08:47→20:21)
[2021-05-18] MEDS: Atorvastatin Calcium 40 MG TAB PO SCH (08:47)
[2021-05-18] MEDS: Folic Acid/Vit B Comp W-C PO SCH (08:47)
[2021-05-18] MEDS: FLUoxetine HCl 20 MG CAP PO SCH (08:47)
[2021-05-18] MEDS: Famotidine 20 MG TAB PO SCH (08:47)
[2021-05-18] MEDS: Senokot 8.6 MG TAB PO SCH (08:47)
[2021-05-18] MEDS: Ondansetron PF 4 MG/2 ML Vial IVP PRN ×2 (08:48→15:42)
[2021-05-18 11:36] LABS: SARS-CoV-2 PCR by NAA Not Detected (NotDetected)
[2021-05-18] MEDS: ALPRAZolam 1 MG TAB PO PRN (20:21)
[2021-05-19] MEDS: Fentanyl 100 MCG/2 ML VIAL SLOW IVP PRN ×7 (01:21→23:04)
[2021-05-19] MEDS: Ondansetron PF 4 MG/2 ML Vial IVP PRN (10:00)
[2021-05-19] MEDS: Carvedilol 6.25 MG TAB PO SCH ×2 (11:39→17:05)
[2021-05-19] MEDS: tiZANidine HCl 4 MG TAB PER TUBE SCH ×3 (11:40→20:40)
[2021-05-19] MEDS: FLUoxetine HCl 20 MG CAP PO SCH (11:40)
[2021-05-19] MEDS: Megestrol Acetate 800 MG/20 ML UDCUP PO SCH (11:40)
[2021-05-19] MEDS: Atorvastatin Calcium 40 MG TAB PO SCH (11:40)
[2021-05-19] MEDS: Folic Acid/Vit B Comp W-C PO SCH (11:40)
[2021-05-19] MEDS: Senokot 8.6 MG TAB PO SCH (11:40)
[2021-05-19] MEDS ORDERED: traMADol HCl 50 MG TAB PO PRN (12:15)
[2021-05-19] MEDS ORDERED: Carvedilol 6.25 MG TAB PO SCH (13:15)
[2021-05-19] MEDS: ALPRAZolam 1 MG TAB PO PRN (20:40)
[2021-05-20] MEDS: Ondansetron PF 4 MG/2 ML Vial IVP PRN ×2 (03:24→12:44)
[2021-05-20] MEDS: Fentanyl 100 MCG/2 ML VIAL SLOW IVP PRN ×5 (03:24→19:35)
[2021-05-20 06:35] LABS: Albumin 2.8 g/dL (3.5-5.0); Anion Gap 14 mmol/L (10-20); BUN (Urea Nitrogen) 21 mg/dL (9.8-20.1); BUN/Creatinine Ratio 3.57; Calc. Creatinine Clearance 11 mL/min (70-130); Calcium 9.6 mg/dL (7.8-10.44); Carbon Dioxide 28 mmol/L (22-29); Chloride 99 mmol/L (98-107); Glucose 86 mg/dL (70-105); Phosphorus 3.9 mg/dL (2.3-4.7); Sodium 137 mmol/L (136-145)
[2021-05-20] MEDS ORDERED: Midazolam HCl 2 mg/2 ml Vial ONE (08:54)
[2021-05-20] MEDS ORDERED: Fentanyl 100 MCG/2 ML VIAL ONE (08:54)
[2021-05-20] MEDS ORDERED: Phenylephrine 10 MG/ML VIAL ONE (09:08)
[2021-05-20] MEDS ORDERED: Ondansetron PF 4 MG/2 ML Vial ONE (09:08)
[2021-05-20] MEDS ORDERED: PROPOFOL 200 MG/20 ML VIAL ONE (09:08)
[2021-05-20] MEDS ORDERED: CEFAZOLIN 1 GM VIAL ONE (09:26)
[2021-05-20] MEDS ORDERED: ceFAZolin 2 GM/DEX 5% 100 ML BAG ONE (09:26)
[2021-05-20] MEDS ORDERED: Gentamicin 80 MG/2 ML VIAL ONE (09:26)
[2021-05-20] MEDS ORDERED: Lidocaine 1% (PF) 30 ML VIAL ONE (09:53)
[2021-05-20] MEDS ORDERED: Ondansetron HCl/PF 4 MG/2 ML Vial IVP PRN (11:13)
[2021-05-20] MEDS ORDERED: Promethazine HCl 25 MG/ML VIAL IM PRN (11:13)
[2021-05-20] MEDS ORDERED: Promethazine HCl 25 MG/ML VIAL IVPB PRN (11:13)
[2021-05-20] MEDS: Carvedilol 6.25 MG TAB PO SCH ×3 (12:33→16:32)
[2021-05-20] MEDS: Megestrol Acetate 800 MG/20 ML UDCUP PO SCH (12:44)
[2021-05-20] MEDS: Folic Acid/Vit B Comp W-C PO SCH (12:45)
[2021-05-20] MEDS: tiZANidine HCl 4 MG TAB PER TUBE SCH ×3 (12:46→19:35)
[2021-05-20] MEDS: FLUoxetine HCl 20 MG CAP PO SCH (12:46)
[2021-05-20] MEDS: Senokot 8.6 MG TAB PO SCH (12:47)
[2021-05-20] MEDS: Atorvastatin Calcium 40 MG TAB PO SCH (12:47)
[2021-05-20] MEDS: Cephalexin 250 MG CAP PO SCH ×2 (15:31→19:35)
[2021-05-21] MEDS: Fentanyl 100 MCG/2 ML VIAL SLOW IVP PRN ×7 (02:40→20:31)
[2021-05-21] MEDS: Ondansetron PF 4 MG/2 ML Vial IVP PRN ×3 (07:40→22:49)
[2021-05-21] MEDS: Carvedilol 6.25 MG TAB PO SCH ×3 (12:47→20:31)
[2021-05-21] MEDS: Cephalexin 250 MG CAP PO SCH ×3 (15:28→20:32)
[2021-05-21] MEDS: tiZANidine HCl 4 MG TAB PER TUBE SCH ×3 (15:28→20:32)
[2021-05-21] MEDS: Megestrol Acetate 800 MG/20 ML UDCUP PO SCH (15:34)
[2021-05-21] MEDS: Folic Acid/Vit B Comp W-C PO SCH (15:34)
[2021-05-21] MEDS: FLUoxetine HCl 20 MG CAP PO SCH (15:34)
[2021-05-21] MEDS: Senokot 8.6 MG TAB PO SCH (15:36)
[2021-05-21] MEDS: Atorvastatin Calcium 40 MG TAB PO SCH (15:37)
[2021-05-22] MEDS: Fentanyl 100 MCG/2 ML VIAL SLOW IVP PRN ×2 (03:11→05:29)
[2021-05-22] MEDS: Ondansetron PF 4 MG/2 ML Vial IVP PRN (05:30)
[2021-05-22] MEDS: Atorvastatin Calcium 40 MG TAB PO SCH (09:06)
[2021-05-22] MEDS: Carvedilol 6.25 MG TAB PO SCH ×2 (09:06→21:27)
[2021-05-22] MEDS: FLUoxetine HCl 20 MG CAP PO SCH (09:07)
[2021-05-22] MEDS: Cephalexin 250 MG CAP PO SCH ×3 (09:07→21:27)
[2021-05-22] MEDS: Senokot 8.6 MG TAB PO SCH (09:07)
[2021-05-22] MEDS: Folic Acid/Vit B Comp W-C PO SCH (09:07)
[2021-05-22] MEDS: Megestrol Acetate 800 MG/20 ML UDCUP PO SCH (09:07)
[2021-05-22] MEDS: tiZANidine HCl 4 MG TAB PER TUBE SCH ×3 (09:09→21:27)
[2021-05-22] MEDS: Lidocaine 5% Patch TD SCH (09:09)
[2021-05-22 10:10] LABS: Hemoglobin 9.6 g/dL (12.0-16.0); Mean Corpuscular HGB CONC 32.8 g/dL (32.0-36.0); Mean Corpuscular Hemoglobin 34.1 pg (27.0-31.0); Mean Platelet Volume 6.5 fL (7.4-10.4); Platelet Count 264 thou/uL (130-400); Red Blood Cell (RBC) Count 2.82 mill/uL (4.20-5.40); White Blood Cell (WBC) Count 6.3 thou/uL (4.8-10.8)
[2021-05-22 10:31] LABS: Albumin 2.5 g/dL (3.5-5.0); Anion Gap 14 mmol/L (10-20); BUN (Urea Nitrogen) 19 mg/dL (9.8-20.1); BUN/Creatinine Ratio 3.68; Calc. Creatinine Clearance 13 mL/min (70-130); Carbon Dioxide 30 mmol/L (22-29); Chloride 97 mmol/L (98-107); Glucose 120 mg/dL (70-105); Phosphorus 3.4 mg/dL (2.3-4.7); Potassium 3.5 mmol/L (3.5-5.1); Sodium 137 mmol/L (136-145)
[2021-05-22] MEDS ORDERED: Sodium Chloride 0.9% 500 ML IV SCH (11:30)
[2021-05-22] MEDS: HYDROcodone/Acetaminophen 10/325 mg Tablet PO PRN ×2 (15:15→21:27)
[2021-05-22] MEDS: Transdermal Patch Removal TOP SCH (21:27)
[2021-05-23] MEDS: Atorvastatin Calcium 40 MG TAB PO SCH (08:46)
[2021-05-23] MEDS: Folic Acid/Vit B Comp W-C PO SCH (08:46)
[2021-05-23] MEDS: Cephalexin 250 MG CAP PO SCH ×3 (08:46→21:23)
[2021-05-23] MEDS: FLUoxetine HCl 20 MG CAP PO SCH (08:46)
[2021-05-23] MEDS: tiZANidine HCl 4 MG TAB PER TUBE SCH ×3 (08:47→21:22)
[2021-05-23] MEDS: Lidocaine 5% Patch TD SCH (08:47)
[2021-05-23] MEDS: Senokot 8.6 MG TAB PO SCH (08:47)
[2021-05-23] MEDS: Carvedilol 6.25 MG TAB PO SCH ×2 (08:48→21:23)
[2021-05-23] MEDS: Megestrol Acetate 800 MG/20 ML UDCUP PO SCH (08:48)
[2021-05-23] MEDS ORDERED: traMADol HCl 50 MG TAB PO PRN (11:28)
[2021-05-23] MEDS: traMADol HCl 50 MG TAB PO SCH ×2 (14:09→21:23)
[2021-05-23] MEDS: Transdermal Patch Removal TOP SCH (21:22)
[2021-05-24] MEDS: Acetaminophen 325 MG TAB PO PRN ×2 (00:56→07:59)
[2021-05-24] MEDS: Lidocaine 5% Patch TD SCH (05:11)
[2021-05-24 06:15] LABS: Albumin 2.6 g/dL (3.5-5.0); Anion Gap 17 mmol/L (10-20); BUN (Urea Nitrogen) 29 mg/dL (9.8-20.1); BUN/Creatinine Ratio 3.97; Calc. Creatinine Clearance 9 mL/min (70-130); Calcium 9.5 mg/dL (7.8-10.44); Carbon Dioxide 25 mmol/L (22-29); Chloride 98 mmol/L (98-107); Glucose 80 mg/dL (70-105); Phosphorus 4.7 mg/dL (2.3-4.7); Potassium 4.1 mmol/L (3.5-5.1); Sodium 136 mmol/L (136-145)
[2021-05-24] MEDS: Atorvastatin Calcium 40 MG TAB PO SCH (07:58)
[2021-05-24] MEDS: Senokot 8.6 MG TAB PO SCH (07:58)
[2021-05-24] MEDS: tiZANidine HCl 4 MG TAB PER TUBE SCH (07:58)
[2021-05-24] MEDS: Folic Acid/Vit B Comp W-C PO SCH (07:58)
[2021-05-24] MEDS: Carvedilol 6.25 MG TAB PO SCH (07:58)
[2021-05-24] MEDS: Megestrol Acetate 800 MG/20 ML UDCUP PO SCH (07:59)
[2021-05-24] MEDS: traMADol HCl 50 MG TAB PO SCH (07:59)
[2021-05-24] MEDS: Cephalexin 250 MG CAP PO SCH (07:59)
[2021-05-24] MEDS: FLUoxetine HCl 20 MG CAP PO SCH (07:59)
[2021-05-24 08:41] VITALS: BMI 21.6
[2021-05-24] MEDS ORDERED: ALPRAZolam 0.25 MG TAB PO PRN (09:38)
[2021-05-24 11:53] VITALS: BP 122/79; TEMP 98.1
== END 2021-05-24 13:18 | disposition home or self-care (01) | DRG 226 ==
LOC: ERS 18:34 → CCU 18:52 → 2NO 05-12 21:46
PROVIDERS: ADMIT Internal Medicine; ATTEND Internal Medicine
PROC: 5A1945Z Respiratory Ventilation, 24-96 Consecutive Hours (ICD-10-PCS; 2021-05-10)
PROC: 5A12012 Performance of Cardiac Output, Single, Manual (ICD-10-PCS; 2021-05-10)
PROC: 06HY33Z Insertion of Infusion Device into Lower Vein, Percutaneous Approach (ICD-10-PCS; 2021-05-10)
PROC: 0D9670Z Drainage of Stomach with Drainage Device, Via Natural or Artificial Opening (ICD-10-PCS; 2021-05-10)
PROC: 5A1D70Z Performance of Urinary Filtration, Intermittent, Less than 6 Hours Per Day (ICD-10-PCS; 2021-05-14)
PROC: 0JH608Z Insertion of Defibrillator Generator into Chest Subcutaneous Tissue and Fascia, Open Approach (ICD-10-PCS; principal; 2021-05-20)
PROC: 02HK3KZ Insertion of Defibrillator Lead into Right Ventricle, Percutaneous Approach (ICD-10-PCS; 2021-05-20)
PROC: 02H63KZ Insertion of Defibrillator Lead into Right Atrium, Percutaneous Approach (ICD-10-PCS; 2021-05-20)
DX: I47.1 Supraventricular tachycardia (principal); J96.01 Acute respiratory failure with hypoxia; I21.4 Non-ST elevation (NSTEMI) myocardial infarction; I50.33 Acute on chronic diastolic (congestive) heart failure; N18.6 End stage renal disease; I42.0 Dilated cardiomyopathy; M96.89 Other intraoperative and postprocedural complications and disorders of the musculoskeletal system; E87.3 Alkalosis; Q61.3 Polycystic kidney, unspecified; I46.2 Cardiac arrest due to underlying cardiac condition; I49.01 Ventricular fibrillation; J44.9 Chronic obstructive pulmonary disease, unspecified; D63.1 Anemia in chronic kidney disease; I11.0 Hypertensive heart disease with heart failure; R77.8 Other specified abnormalities of plasma proteins; I08.1 Rheumatic disorders of both mitral and tricuspid valves; I48.0 Paroxysmal atrial fibrillation; E78.5 Hyperlipidemia, unspecified; I95.2 Hypotension due to drugs; T40.605A Adverse effect of unspecified narcotics, initial encounter; Z78.1 Physical restraint status; Z99.2 Dependence on renal dialysis; Z86.74 Personal history of sudden cardiac arrest; Z90.5 Acquired absence of kidney; Z86.73 Personal history of transient ischemic attack (TIA), and cerebral infarction without residual deficits; Z98.51 Tubal ligation status; Z90.49 Acquired absence of other specified parts of digestive tract; Z88.5 Allergy status to narcotic agent; Z88.8 Allergy status to other drugs, medicaments and biological substances; Z79.899 Other long term (current) drug therapy; Z79.52 Long term (current) use of systemic steroids; Z87.891 Personal history of nicotine dependence; Z82.49 Family history of ischemic heart disease and other diseases of the circulatory system; Z84.1 Family history of disorders of kidney and ureter; Z20.822 Contact with and (suspected) exposure to COVID-19; Y84.8 Other medical procedures as the cause of abnormal reaction of the patient, or of later complication, without mention of misadventure at the time of the procedure
CPT/HCPCS: 0240U; 33249; 36415; 36416; 36556; 36600; 51702; 71045; 71275; 80048; 80053; 80061; 80069; 81003; 81015; 82553; 82805; 83735; 83880; 84100; 84484; 85014; 85018; 85025; 85027; 85049; 85610; 85730; 87040; 87340; 90935; 92950; 93005; 93010; 93306; 94002; 94003; 94640; 94760; 96365; 96366; 96374; 96375; 97139; C1721; C1777; C1898; G0257; J0690; J1580; J1644; J1940; J2001; J2060; J2250; J2370; J2405; J2550; J2704; J3010; J3475; J3490; J7030; J7620; Q9967; U0003; U0005

== ENCOUNTER 2021-05-25 19:56 | Inpatient (IN) | payer MEDICARE, MEDICAID ==
[2021-05-25 21:21] LABS: #Eosinphils 0.1 thou/uL (0.0-0.7); #Lymphocytes 1.6 thou/uL (1.20-3.40); #Monocytes 0.6 thou/uL (0.11-0.59); %Basophils 0.5 % (0.0-1.0); %Eosinophils 1.8 % (0.0-10.0); %Lymphocytes 21.8 % (21.0-51.0); %Monocytes 7.7 % (0.0-10.0); %Neutrophils 68.3 % (42.0-75.0); Hemoglobin 8.6 g/dL (12.0-16.0); Mean Corpuscular HGB CONC 31.1 g/dL (32.0-36.0); Mean Corpuscular Hemoglobin 33.1 pg (27.0-31.0); Mean Platelet Volume 6.6 fL (7.4-10.4); Platelet Count 259 thou/uL (130-400); RBC Distribution Width 13.8 % (11.5-14.5); White Blood Cell (WBC) Count 7.4 thou/uL (4.8-10.8)
[2021-05-25 21:42] LABS: ALT (SGPT) Less than 7 U/L (8-55); AST (SGOT) 24 U/L (5-34); Albumin 2.5 g/dL (3.5-5.0); Alkaline Phosphatase 78 U/L (40-110); Anion Gap 17 mmol/L (10-20); BUN (Urea Nitrogen) 23 mg/dL (9.8-20.1); Bilirubin, Total 0.4 mg/dL (0.2-1.2); Calc. Creatinine Clearance 0 mL/min (70-130); Calcium 8.6 mg/dL (7.8-10.44); Carbon Dioxide 26 mmol/L (22-29); Chloride 102 mmol/L (98-107); Globulin 2.8 g/dL (2.4-3.5); Glucose 139 mg/dL (70-105); Magnesium 1.6 mg/dL (1.6-2.6); Protein, Total 5.3 g/dL (6.0-8.3); Sodium 141 mmol/L (136-145)
[2021-05-25 22:09] LABS: CKMB 6.7 ng/mL (0-6.6)
[2021-05-25] MEDS ORDERED: Acetaminophen 325 MG TAB PO PRN (23:32)
[2021-05-25] MEDS ORDERED: Albuterol Sulfate 2.5 mg/3 ml Neb NEB PRN (23:35)
[2021-05-26 00:22] VITALS: BMI 43.0
[2021-05-26 00:59] LABS: Troponin I 5.268 ng/mL (< 0.028)
[2021-05-26] MEDS ORDERED: ALPRAZolam 0.25 MG TAB ONE (01:22)
[2021-05-26] MEDS ORDERED: cefTRIAXone\\ROCEPHIN 1 GM VIAL ONE (01:22)
[2021-05-26] MEDS: cefTRIAXone\\ROCEPHIN 1 GM in Sodium Chloride 0.9% 100 ML IVPB SCH (01:32)
[2021-05-26] MEDS: ALPRAZolam 1 MG TAB PO PRN ×2 (01:32→20:33)
[2021-05-26 05:16] LABS: #Basophils 0.1 thou/uL (0.0-0.2); #Eosinphils 0.2 thou/uL (0.0-0.7); #Monocytes 0.8 thou/uL (0.11-0.59); #Neutrophils 5.4 thou/uL (1.40-6.50); %Basophils 0.9 % (0.0-1.0); %Eosinophils 2.9 % (0.0-10.0); %Lymphocytes 23.6 % (21.0-51.0); %Neutrophils 63.6 % (42.0-75.0); Hemoglobin 7.8 g/dL (12.0-16.0); Mean Corpuscular Hemoglobin 33.7 pg (27.0-31.0); Mean Platelet Volume 6.8 fL (7.4-10.4); Platelet Count 284 thou/uL (130-400); RBC Distribution Width 13.6 % (11.5-14.5); White Blood Cell (WBC) Count 8.4 thou/uL (4.8-10.8)
[2021-05-26] MEDS ORDERED: HYDROcodone/Acetaminophen 5/325 mg Tablet ONE (05:22)
[2021-05-26] MEDS: HYDROcodone/Acetaminophen 5/325 mg Tablet PO PRN (05:28)
[2021-05-26 05:36] LABS: Anion Gap 16 mmol/L (10-20); BUN (Urea Nitrogen) 25 mg/dL (9.8-20.1); Calc. Creatinine Clearance 21 mL/min (70-130); Calcium 8.8 mg/dL (7.8-10.44); Carbon Dioxide 28 mmol/L (22-29); Chloride 100 mmol/L (98-107); Glucose 87 mg/dL (70-105); Sodium 140 mmol/L (136-145)
[2021-05-26 05:41] LABS: Troponin I 6.886 ng/mL (< 0.028)
[2021-05-26 07:34] LABS: SARS-CoV-2 NAA Rapid Test Not Detected (NotDetected)
[2021-05-26] MEDS: Amiodarone 450 MG in Dextrose 5% in Water 250 ML IVPB SCH ×2 (07:49→17:18)
[2021-05-26] MEDS ORDERED: Clopidogrel Bisulfate 75 MG TAB ONE ×2 (09:41→10:20)
[2021-05-26] MEDS: Clopidogrel Bisulfate 75 MG TAB PO SCH (10:27)
[2021-05-26] MEDS: Carvedilol 6.25 MG TAB PO SCH ×2 (10:27→20:33)
[2021-05-26] MEDS: Atorvastatin Calcium 40 MG TAB PO SCH (10:27)
[2021-05-26] MEDS: Folic Acid/Vit B Comp W-C PO SCH (10:28)
[2021-05-26] MEDS: tiZANidine HCl 4 MG TAB PO PRN ×2 (14:39→20:44)
[2021-05-27] MEDS: cefTRIAXone\\ROCEPHIN 1 GM in Sodium Chloride 0.9% 100 ML IVPB SCH (00:08)
[2021-05-27] MEDS: HYDROcodone/Acetaminophen 5/325 mg Tablet PO PRN ×3 (01:27→20:53)
[2021-05-27 06:10] LABS: #Eosinphils 0.3 thou/uL (0.0-0.7); #Lymphocytes 1.8 thou/uL (1.20-3.40); #Monocytes 0.5 thou/uL (0.11-0.59); #Neutrophils 3.8 thou/uL (1.40-6.50); %Basophils 0.8 % (0.0-1.0); %Eosinophils 4.7 % (0.0-10.0); %Lymphocytes 28.1 % (21.0-51.0); %Monocytes 7.4 % (0.0-10.0); %Neutrophils 59.1 % (42.0-75.0); Hemoglobin 8.6 g/dL (12.0-16.0); Mean Corpuscular HGB CONC 30.9 g/dL (32.0-36.0); Mean Corpuscular Hemoglobin 33.9 pg (27.0-31.0); Mean Platelet Volume 7.4 fL (7.4-10.4); Platelet Count 271 thou/uL (130-400); Red Blood Cell (RBC) Count 2.54 mill/uL (4.20-5.40); White Blood Cell (WBC) Count 6.5 thou/uL (4.8-10.8)
[2021-05-27 06:32] LABS: Anion Gap 17 mmol/L (10-20); BUN (Urea Nitrogen) 13 mg/dL (9.8-20.1); Calc. Creatinine Clearance 19 mL/min (70-130); Calcium 8.5 mg/dL (7.8-10.44); Carbon Dioxide 24 mmol/L (22-29); Chloride 97 mmol/L (98-107); Glucose 75 mg/dL (70-105); Potassium 4.8 mmol/L (3.5-5.1); Sodium 133 mmol/L (136-145)
[2021-05-27] MEDS: Clopidogrel Bisulfate 75 MG TAB PO SCH (09:14)
[2021-05-27] MEDS: Folic Acid/Vit B Comp W-C PO SCH (09:14)
[2021-05-27] MEDS: tiZANidine HCl 4 MG TAB PO PRN ×2 (09:14→17:49)
[2021-05-27] MEDS: Atorvastatin Calcium 40 MG TAB PO SCH (09:14)
[2021-05-27] MEDS: Carvedilol 6.25 MG TAB PO SCH ×2 (09:14→20:53)
[2021-05-27] MEDS ORDERED: Nitroglycerin 0.4 MG TAB (25 Tab Bottle) ONE (18:26)
[2021-05-27] MEDS: ALPRAZolam 1 MG TAB PO PRN (20:53)
[2021-05-27] MEDS: Amiodarone 200 MG TAB PO SCH (20:53)
[2021-05-28] MEDS: cefTRIAXone\\ROCEPHIN 1 GM in Sodium Chloride 0.9% 100 ML IVPB SCH (00:41)
[2021-05-28] MEDS: HYDROcodone/Acetaminophen 5/325 mg Tablet PO PRN ×3 (00:41→15:58)
[2021-05-28] MEDS: tiZANidine HCl 4 MG TAB PO PRN ×2 (04:19→21:10)
[2021-05-28 05:25] LABS: Anion Gap 18 mmol/L (10-20); BUN (Urea Nitrogen) 23 mg/dL (9.8-20.1); Calc. Creatinine Clearance 13 mL/min (70-130); Calcium 9.4 mg/dL (7.8-10.44); Carbon Dioxide 24 mmol/L (22-29); Chloride 97 mmol/L (98-107); Glucose 88 mg/dL (70-105); Magnesium 1.7 mg/dL (1.6-2.6); Potassium 4.4 mmol/L (3.5-5.1); Sodium 135 mmol/L (136-145)
[2021-05-28] MEDS ORDERED: Amiodarone 200 MG TAB PO SCH (05:45)
[2021-05-28] MEDS ORDERED: Diltiazem HCl 125 MG, Admixture Fee 1 EACH in Sodium Chloride 0.9% 100 ML IVPB SCH (05:45)
[2021-05-28 07:05] LABS: #Basophils 0.1 thou/uL (0.0-0.2); #Eosinphils 0.3 thou/uL (0.0-0.7); #Lymphocytes 2.2 thou/uL (1.20-3.40); #Monocytes 0.7 thou/uL (0.11-0.59); #Neutrophils 5.5 thou/uL (1.40-6.50); %Basophils 1.1 % (0.0-1.0); %Eosinophils 3.1 % (0.0-10.0); %Lymphocytes 25.4 % (21.0-51.0); %Monocytes 7.5 % (0.0-10.0); %Neutrophils 62.9 % (42.0-75.0); Hemoglobin 9.7 g/dL (12.0-16.0); Mean Corpuscular HGB CONC 30.8 g/dL (32.0-36.0); Mean Corpuscular Hemoglobin 32.3 pg (27.0-31.0); Mean Platelet Volume 6.9 fL (7.4-10.4); Platelet Count 348 thou/uL (130-400); RBC Distribution Width 13.3 % (11.5-14.5); Red Blood Cell (RBC) Count 3.01 mill/uL (4.20-5.40); White Blood Cell (WBC) Count 8.8 thou/uL (4.8-10.8)
[2021-05-28] MEDS: Folic Acid/Vit B Comp W-C PO SCH (09:16)
[2021-05-28] MEDS: Carvedilol 6.25 MG TAB PO SCH ×2 (09:16→21:09)
[2021-05-28] MEDS: Clopidogrel Bisulfate 75 MG TAB PO SCH (09:16)
[2021-05-28] MEDS: Amiodarone 200 MG TAB PO SCH (09:23)
[2021-05-28] MEDS: Atorvastatin Calcium 40 MG TAB PO SCH ×2 (10:03→21:09)
[2021-05-28] MEDS ORDERED: Amiodarone 450 MG in Dextrose 5% in Water 250 ML IVPB SCH (12:00)
[2021-05-28] MEDS ORDERED: Amiodarone 150 MG in Dextrose 5% in Water 100 ML IVPB SCH (12:00)
[2021-05-28] MEDS: ALPRAZolam 1 MG TAB PO PRN (21:09)
[2021-05-28] MEDS: Apixaban 2.5 MG TAB PO SCH (21:10)
[2021-05-29] MEDS: cefTRIAXone\\ROCEPHIN 1 GM in Sodium Chloride 0.9% 100 ML IVPB SCH (00:02)
[2021-05-29] MEDS: HYDROcodone/Acetaminophen 5/325 mg Tablet PO PRN ×3 (03:50→22:29)
[2021-05-29 05:11] LABS: #Basophils 0.1 thou/uL (0.0-0.2); #Eosinphils 0.2 thou/uL (0.0-0.7); #Lymphocytes 1.9 thou/uL (1.20-3.40); #Monocytes 0.6 thou/uL (0.11-0.59); #Neutrophils 3.3 thou/uL (1.40-6.50); %Basophils 1.2 % (0.0-1.0); %Eosinophils 2.8 % (0.0-10.0); %Lymphocytes 31.5 % (21.0-51.0); %Monocytes 10.1 % (0.0-10.0); %Neutrophils 54.4 % (42.0-75.0); Mean Corpuscular HGB CONC 32.1 g/dL (32.0-36.0); Mean Corpuscular Hemoglobin 33.2 pg (27.0-31.0); Mean Platelet Volume 7.2 fL (7.4-10.4); Platelet Count 285 thou/uL (130-400); RBC Distribution Width 13.3 % (11.5-14.5); Red Blood Cell (RBC) Count 2.42 mill/uL (4.20-5.40)
[2021-05-29 05:34] LABS: Anion Gap 20 mmol/L (10-20); BUN (Urea Nitrogen) 18 mg/dL (9.8-20.1); Calc. Creatinine Clearance 15 mL/min (70-130); Calcium 8.7 mg/dL (7.8-10.44); Carbon Dioxide 25 mmol/L (22-29); Chloride 96 mmol/L (98-107); Glucose 82 mg/dL (70-105); Potassium 4.2 mmol/L (3.5-5.1); Sodium 137 mmol/L (136-145)
[2021-05-29] MEDS: Clopidogrel Bisulfate 75 MG TAB PO SCH (08:29)
[2021-05-29] MEDS: Folic Acid/Vit B Comp W-C PO SCH (08:29)
[2021-05-29] MEDS: Apixaban 2.5 MG TAB PO SCH ×2 (08:30→21:10)
[2021-05-29] MEDS: Carvedilol 6.25 MG TAB PO SCH ×2 (08:30→16:31)
[2021-05-29] MEDS: tiZANidine HCl 4 MG TAB PO PRN ×2 (14:30→21:11)
[2021-05-29] MEDS ORDERED: cloNIDine 0.1 MG TAB PO PRN (15:20)
[2021-05-29 15:29] LABS: Iron 69 ug/dL (50-170); Iron Binding Capacity, Total 159 mcg/dL (265-497)
[2021-05-29] MEDS: Atorvastatin Calcium 40 MG TAB PO SCH (21:10)
[2021-05-29] MEDS: Amiodarone 200 MG TAB PO SCH (21:10)
[2021-05-29] MEDS: Folic Acid 1 MG TAB PO SCH (21:10)
[2021-05-30] MEDS: cefTRIAXone\\ROCEPHIN 1 GM in Sodium Chloride 0.9% 100 ML IVPB SCH ×2 (01:11→23:14)
[2021-05-30] MEDS: HYDROcodone/Acetaminophen 5/325 mg Tablet PO PRN ×2 (05:07→23:11)
[2021-05-30 07:57] LABS: #Basophils 0.1 thou/uL (0.0-0.2); #Eosinphils 0.3 thou/uL (0.0-0.7); #Lymphocytes 2.1 thou/uL (1.20-3.40); #Monocytes 0.7 thou/uL (0.11-0.59); #Neutrophils 3.2 thou/uL (1.40-6.50); %Basophils 0.9 % (0.0-1.0); %Eosinophils 5.3 % (0.0-10.0); %Lymphocytes 32.9 % (21.0-51.0); %Monocytes 10.1 % (0.0-10.0); %Neutrophils 50.8 % (42.0-75.0); Hemoglobin 10.4 g/dL (12.0-16.0); Mean Corpuscular HGB CONC 30.7 g/dL (32.0-36.0); Mean Corpuscular Hemoglobin 31.5 pg (27.0-31.0); Mean Platelet Volume 6.7 fL (7.4-10.4); Platelet Count 300 thou/uL (130-400); RBC Distribution Width 13.4 % (11.5-14.5); White Blood Cell (WBC) Count 6.4 thou/uL (4.8-10.8)
[2021-05-30 08:00] LABS: Anion Gap 17 mmol/L (10-20); BUN (Urea Nitrogen) 27 mg/dL (9.8-20.1); Calc. Creatinine Clearance 11 mL/min (70-130); Calcium 8.3 mg/dL (7.8-10.44); Carbon Dioxide 26 mmol/L (22-29); Chloride 96 mmol/L (98-107); Glucose 86 mg/dL (70-105); Magnesium 1.7 mg/dL (1.6-2.6); Potassium 4.3 mmol/L (3.5-5.1); Sodium 135 mmol/L (136-145)
[2021-05-30] MEDS: Amiodarone 200 MG TAB PO SCH ×2 (08:24→20:50)
[2021-05-30] MEDS: Clopidogrel Bisulfate 75 MG TAB PO SCH (08:24)
[2021-05-30] MEDS: Carvedilol 6.25 MG TAB PO SCH ×2 (08:24→16:35)
[2021-05-30] MEDS: Apixaban 2.5 MG TAB PO SCH ×2 (08:24→20:50)
[2021-05-30] MEDS: Folic Acid/Vit B Comp W-C PO SCH (08:24)
[2021-05-30] MEDS ORDERED: EPOETIN ALFA-EPBX (ESRD) 10,000 UNIT/ML VIAL SC SCH (09:00)
[2021-05-30] MEDS: tiZANidine HCl 4 MG TAB PO PRN (13:25)
[2021-05-30] MEDS: Atorvastatin Calcium 40 MG TAB PO SCH (20:50)
[2021-05-30] MEDS: ALPRAZolam 1 MG TAB PO PRN (20:50)
[2021-05-30] MEDS: Folic Acid 1 MG TAB PO SCH (20:50)
[2021-05-30] MEDS: Sacubitril 49 MG/Valsartan 51 MG TABLET PO SCH (20:50)
[2021-05-31] MEDS ORDERED: Fentanyl 100 MCG/2 ML VIAL SLOW IVP SCH (01:15)
[2021-05-31] MEDS: HYDROcodone/Acetaminophen 5/325 mg Tablet PO PRN (05:34)
[2021-05-31] MEDS ORDERED: HYDROcodone/Acetaminophen 5/325 mg Tablet PO PRN (08:27)
[2021-05-31] MEDS: Fentanyl 100 MCG/2 ML VIAL SLOW IVP PRN ×3 (09:26→20:27)
[2021-05-31] MEDS: Apixaban 2.5 MG TAB PO SCH ×2 (13:10→20:27)
[2021-05-31] MEDS: Amiodarone 200 MG TAB PO SCH ×2 (13:10→20:27)
[2021-05-31] MEDS: Carvedilol 6.25 MG TAB PO SCH ×2 (13:10→16:34)
[2021-05-31] MEDS: Folic Acid/Vit B Comp W-C PO SCH (13:11)
[2021-05-31] MEDS: Sacubitril 49 MG/Valsartan 51 MG TABLET PO SCH ×2 (13:11→20:27)
[2021-05-31] MEDS: Clopidogrel Bisulfate 75 MG TAB PO SCH (13:11)
[2021-05-31] MEDS: Ondansetron PF 4 MG/2 ML Vial IVP PRN (17:33)
[2021-05-31] MEDS: Folic Acid 1 MG TAB PO SCH (20:27)
[2021-05-31] MEDS: Atorvastatin Calcium 40 MG TAB PO SCH (20:27)
[2021-06-01] MEDS: Fentanyl 100 MCG/2 ML VIAL SLOW IVP PRN ×4 (01:20→20:50)
[2021-06-01 05:15] LABS: #Basophils 0.1 thou/uL (0.0-0.2); #Eosinphils 0.3 thou/uL (0.0-0.7); #Lymphocytes 1.4 thou/uL (1.20-3.40); #Monocytes 0.5 thou/uL (0.11-0.59); #Neutrophils 2.6 thou/uL (1.40-6.50); %Basophils 1.4 % (0.0-1.0); %Eosinophils 5.3 % (0.0-10.0); %Lymphocytes 29.3 % (21.0-51.0); %Monocytes 10.5 % (0.0-10.0); %Neutrophils 53.5 % (42.0-75.0); Hemoglobin 8.8 g/dL (12.0-16.0); Mean Corpuscular HGB CONC 30.6 g/dL (32.0-36.0); Mean Corpuscular Hemoglobin 32.1 pg (27.0-31.0); Mean Platelet Volume 6.7 fL (7.4-10.4); Platelet Count 294 thou/uL (130-400); RBC Distribution Width 13.7 % (11.5-14.5); Red Blood Cell (RBC) Count 2.73 mill/uL (4.20-5.40); White Blood Cell (WBC) Count 4.9 thou/uL (4.8-10.8)
[2021-06-01 05:33] LABS: Anion Gap 16 mmol/L (10-20); BUN (Urea Nitrogen) 16 mg/dL (9.8-20.1); Calc. Creatinine Clearance 15 mL/min (70-130); Calcium 8.5 mg/dL (7.8-10.44); Carbon Dioxide 27 mmol/L (22-29); Chloride 98 mmol/L (98-107); Glucose 86 mg/dL (70-105); Sodium 137 mmol/L (136-145)
[2021-06-01] MEDS: Cephalexin 250 MG CAP PO SCH ×2 (09:02→20:48)
[2021-06-01] MEDS: Sacubitril 49 MG/Valsartan 51 MG TABLET PO SCH ×2 (09:02→20:47)
[2021-06-01] MEDS: Folic Acid/Vit B Comp W-C PO SCH (09:02)
[2021-06-01] MEDS: Amiodarone 200 MG TAB PO SCH ×3 (09:02→20:47)
[2021-06-01] MEDS: Clopidogrel Bisulfate 75 MG TAB PO SCH (09:03)
[2021-06-01] MEDS: Carvedilol 6.25 MG TAB PO SCH ×2 (09:03→15:49)
[2021-06-01] MEDS: Apixaban 2.5 MG TAB PO SCH ×2 (09:03→20:48)
[2021-06-01] MEDS: Atorvastatin Calcium 40 MG TAB PO SCH (20:47)
[2021-06-01] MEDS: ALPRAZolam 1 MG TAB PO PRN (20:48)
[2021-06-02] MEDS: Ondansetron PF 4 MG/2 ML Vial IVP PRN ×2 (03:49→10:48)
[2021-06-02] MEDS: Fentanyl 100 MCG/2 ML VIAL SLOW IVP PRN ×2 (03:49→10:48)
[2021-06-02 04:19] VITALS: TEMP 98.6
[2021-06-02] MEDS: Folic Acid/Vit B Comp W-C PO SCH (08:47)
[2021-06-02] MEDS: Cephalexin 250 MG CAP PO SCH (08:47)
[2021-06-02] MEDS: Carvedilol 6.25 MG TAB PO SCH (08:48)
[2021-06-02] MEDS: Apixaban 2.5 MG TAB PO SCH (08:48)
[2021-06-02] MEDS: Clopidogrel Bisulfate 75 MG TAB PO SCH (08:48)
[2021-06-02] MEDS: Sacubitril 49 MG/Valsartan 51 MG TABLET PO SCH (08:48)
[2021-06-02] MEDS: Amiodarone 200 MG TAB PO SCH (08:48)
[2021-06-02 11:51] VITALS: BP 137/70
[2021-06-08] MEDS ORDERED: Amiodarone 200 MG TAB PO SCH (09:00)
[2021-06-22] MEDS ORDERED: Amiodarone 200 MG TAB PO SCH (09:00)
== END 2021-06-02 14:35 | disposition home or self-care (01) | DRG 280 ==
LOC: ERS 19:56 → ERHOLD 23:19 → 2NO 05-26 14:41
PROVIDERS: ADMIT Internal Medicine; ATTEND Internal Medicine
PROC: 5A1D70Z Performance of Urinary Filtration, Intermittent, Less than 6 Hours Per Day (ICD-10-PCS; principal; 2021-05-26)
DX: I48.0 Paroxysmal atrial fibrillation (principal); N18.6 End stage renal disease; I21.A1 Myocardial infarction type 2; T82.110A Breakdown (mechanical) of cardiac electrode, initial encounter; I13.2 Hypertensive heart and chronic kidney disease with heart failure and with stage 5 chronic kidney disease, or end stage renal disease; I50.22 Chronic systolic (congestive) heart failure; R18.8 Other ascites; E87.1 Hypo-osmolality and hyponatremia; I42.0 Dilated cardiomyopathy; I47.2 Ventricular tachycardia; E78.5 Hyperlipidemia, unspecified; J44.9 Chronic obstructive pulmonary disease, unspecified; I49.01 Ventricular fibrillation; I25.5 Ischemic cardiomyopathy; D63.1 Anemia in chronic kidney disease; I48.92 Unspecified atrial flutter; Z20.822 Contact with and (suspected) exposure to COVID-19; Y83.8 Other surgical procedures as the cause of abnormal reaction of the patient, or of later complication, without mention of misadventure at the time of the procedure; Z99.2 Dependence on renal dialysis; Z95.810 Presence of automatic (implantable) cardiac defibrillator; Z87.891 Personal history of nicotine dependence; Z79.899 Other long term (current) drug therapy; Z79.02 Long term (current) use of antithrombotics/antiplatelets; Z88.6 Allergy status to analgesic agent; Z88.5 Allergy status to narcotic agent; Z88.8 Allergy status to other drugs, medicaments and biological substances; Z90.5 Acquired absence of kidney; Z86.73 Personal history of transient ischemic attack (TIA), and cerebral infarction without residual deficits; Z98.51 Tubal ligation status; Z90.49 Acquired absence of other specified parts of digestive tract
CPT/HCPCS: 36415; 71045; 80048; 80053; 82553; 82728; 83540; 83550; 83735; 84484; 85025; 90935; 93005; 93010; 93798; 94760; 97139; G0257; J0282; J0696; J2405; J3010; J3490; J7070; Q5105; U0002

== ENCOUNTER 2021-06-08 18:38 | Emergency (ER) | payer MEDICARE, MEDICAID ==
[2021-06-08 19:25] LABS: #Eosinphils 0.2 thou/uL (0.0-0.7); #Lymphocytes 1.8 thou/uL (1.20-3.40); #Monocytes 0.5 thou/uL (0.11-0.59); #Neutrophils 2.6 thou/uL (1.40-6.50); %Basophils 0.9 % (0.0-1.0); %Eosinophils 3.6 % (0.0-10.0); %Lymphocytes 35.2 % (21.0-51.0); %Monocytes 9.9 % (0.0-10.0); %Neutrophils 50.3 % (42.0-75.0); Hemoglobin 7.9 g/dL (12.0-16.0); Mean Corpuscular HGB CONC 31.8 g/dL (32.0-36.0); Mean Corpuscular Hemoglobin 32.7 pg (27.0-31.0); Mean Platelet Volume 6.6 fL (7.4-10.4); Platelet Count 265 thou/uL (130-400); RBC Distribution Width 14.6 % (11.5-14.5); Red Blood Cell (RBC) Count 2.43 mill/uL (4.20-5.40); White Blood Cell (WBC) Count 5.1 thou/uL (4.8-10.8)
[2021-06-08 19:57] LABS: ALT (SGPT) Less than 7 U/L (8-55); AST (SGOT) 18 U/L (5-34); Albumin 2.5 g/dL (3.5-5.0); Alkaline Phosphatase 70 U/L (40-110); Anion Gap 15 mmol/L (10-20); BUN (Urea Nitrogen) 19 mg/dL (9.8-20.1); Bilirubin, Total 0.4 mg/dL (0.2-1.2); CK (CPK) 32 U/L (29-168); Calc. Creatinine Clearance 0 mL/min (70-130); Carbon Dioxide 36 mmol/L (22-29); Chloride 95 mmol/L (98-107); Globulin 3.3 g/dL (2.4-3.5); Glucose 109 mg/dL (70-105); Magnesium 1.8 mg/dL (1.6-2.6); Potassium 3.7 mmol/L (3.5-5.1); Protein, Total 5.8 g/dL (6.0-8.3); Sodium 142 mmol/L (136-145)
[2021-06-08 20:06] LABS: CKMB 0.9 ng/mL (0-6.6)
== END 2021-06-08 21:51 | disposition home or self-care (01) ==
LOC: ERS 18:38
DX: I95.9 Hypotension, unspecified (principal); I48.91 Unspecified atrial fibrillation; J44.9 Chronic obstructive pulmonary disease, unspecified; N18.6 End stage renal disease; F17.210 Nicotine dependence, cigarettes, uncomplicated; Z99.2 Dependence on renal dialysis; Z86.73 Personal history of transient ischemic attack (TIA), and cerebral infarction without residual deficits; Z79.899 Other long term (current) drug therapy
CPT/HCPCS: 71045; 80053; 82550; 82553; 83605; 83735; 84443; 84484; 85025; 93005

== ENCOUNTER 2021-06-13 16:44 | Inpatient (IN) | payer MEDICARE, MEDICAID ==
[2021-06-13] MEDS ORDERED: Magnesium 2 GM/50 ML BAG (IN WATER) ONE (17:02)
[2021-06-13] MEDS ORDERED: Ondansetron PF 4 MG/2 ML Vial ONE ×2 (17:12→18:46)
[2021-06-13 17:21] LABS: #Eosinphils 0.1 thou/uL (0.0-0.7); #Lymphocytes 2.2 thou/uL (1.20-3.40); #Monocytes 0.7 thou/uL (0.11-0.59); #Neutrophils 4.2 thou/uL (1.40-6.50); %Basophils 0.2 % (0.0-1.0); %Eosinophils 1.9 % (0.0-10.0); %Lymphocytes 30.2 % (21.0-51.0); %Monocytes 9.6 % (0.0-10.0); Hemoglobin 8.8 g/dL (12.0-16.0); Mean Corpuscular HGB CONC 31.4 g/dL (32.0-36.0); Mean Corpuscular Hemoglobin 32.4 pg (27.0-31.0); Mean Platelet Volume 7.1 fL (7.4-10.4); Platelet Count 315 thou/uL (130-400); RBC Distribution Width 15.6 % (11.5-14.5); Red Blood Cell (RBC) Count 2.73 mill/uL (4.20-5.40); White Blood Cell (WBC) Count 7.3 thou/uL (4.8-10.8)
[2021-06-13 17:41] LABS: ALT (SGPT) 7 U/L (8-55); AST (SGOT) 23 U/L (5-34); Albumin 2.8 g/dL (3.5-5.0); Alkaline Phosphatase 72 U/L (40-110); Anion Gap 18 mmol/L (10-20); BUN (Urea Nitrogen) 19 mg/dL (9.8-20.1); Bilirubin, Total 0.5 mg/dL (0.2-1.2); Calc. Creatinine Clearance 0 mL/min (70-130); Calcium 9.5 mg/dL (7.8-10.44); Carbon Dioxide 36 mmol/L (22-29); Chloride 91 mmol/L (98-107); Globulin 3.6 g/dL (2.4-3.5); Glucose 93 mg/dL (70-105); Potassium 3.7 mmol/L (3.5-5.1); Protein, Total 6.4 g/dL (6.0-8.3); Sodium 141 mmol/L (136-145)
[2021-06-13] MEDS ORDERED: Amiodarone 150 MG/3 ML VIAL ONE (17:41)
[2021-06-13] MEDS ORDERED: Morphine 4 MG/ML VIAL ONE (18:46)
[2021-06-13] MEDS ORDERED: Enoxaparin Sodium 60 MG/0.6 ML SYRINGE ONE (18:46)
[2021-06-13] MEDS ORDERED: Amiodarone 450 MG in Dextrose 5% in Water 250 ML IVPB SCH (19:00)
[2021-06-13 20:59] LABS: Troponin I 0.092 ng/mL (< 0.028)
[2021-06-13] MEDS: Carvedilol 6.25 MG TAB PO SCH (21:15)
[2021-06-13] MEDS: Sacubitril 49 MG/Valsartan 51 MG TABLET PO SCH (21:16)
[2021-06-13] MEDS ORDERED: FLUoxetine HCl 10 MG CAP PO SCH ×2 (21:33→22:45)
[2021-06-13 22:00] LABS: SARS-CoV-2 NAA Rapid Test Not Detected (NotDetected)
[2021-06-13 22:05] VITALS: BMI 25.0
[2021-06-13] MEDS: Acetaminophen 325 MG TAB PO PRN (22:52)
[2021-06-13] MEDS ORDERED: traMADol HCl 50 MG TAB PO PRN (23:01)
[2021-06-13] MEDS ORDERED: ALPRAZolam 0.5 MG TAB PO SCH (23:15)
[2021-06-13] MEDS: Morphine 4 MG/ML VIAL SLOW IVP PRN (23:54)
[2021-06-13 23:57] LABS: Troponin I 0.086 ng/mL (< 0.028)
[2021-06-14 04:07] LABS: #Basophils 0.1 thou/uL (0.0-0.2); #Eosinphils 0.3 thou/uL (0.0-0.7); #Lymphocytes 2.1 thou/uL (1.20-3.40); #Monocytes 0.5 thou/uL (0.11-0.59); #Neutrophils 2.7 thou/uL (1.40-6.50); %Basophils 1.1 % (0.0-1.0); %Eosinophils 5.6 % (0.0-10.0); %Lymphocytes 37.9 % (21.0-51.0); %Monocytes 8.7 % (0.0-10.0); %Neutrophils 46.8 % (42.0-75.0); Hemoglobin 8.1 g/dL (12.0-16.0); Mean Corpuscular HGB CONC 31.5 g/dL (32.0-36.0); Mean Corpuscular Hemoglobin 32.3 pg (27.0-31.0); Mean Platelet Volume 7.2 fL (7.4-10.4); Platelet Count 261 thou/uL (130-400); RBC Distribution Width 15.4 % (11.5-14.5); Red Blood Cell (RBC) Count 2.52 mill/uL (4.20-5.40); White Blood Cell (WBC) Count 5.7 thou/uL (4.8-10.8)
[2021-06-14 04:29] LABS: Anion Gap 16 mmol/L (10-20); BUN (Urea Nitrogen) 20 mg/dL (9.8-20.1); Calc. Creatinine Clearance 11 mL/min (70-130); Calcium 8.9 mg/dL (7.8-10.44); Carbon Dioxide 33 mmol/L (22-29); Chloride 92 mmol/L (98-107); Glucose 80 mg/dL (70-105); Magnesium 2.3 mg/dL (1.6-2.6); Potassium 3.7 mmol/L (3.5-5.1); Sodium 137 mmol/L (136-145)
[2021-06-14] MEDS ORDERED: Apixaban 2.5 MG TAB PO SCH (09:00)
[2021-06-14] MEDS: FLUoxetine HCl 10 MG CAP PO SCH (09:59)
[2021-06-14] MEDS: Sacubitril 49 MG/Valsartan 51 MG TABLET PO SCH ×2 (09:59→20:12)
[2021-06-14] MEDS: Clopidogrel Bisulfate 75 MG TAB PO SCH (09:59)
[2021-06-14] MEDS: Carvedilol 6.25 MG TAB PO SCH ×2 (09:59→20:12)
[2021-06-14] MEDS: Atorvastatin Calcium 40 MG TAB PO SCH (09:59)
[2021-06-14 10:49] LABS: Hep B Surf Ag Non-Reactive S/CO (NonReactive)
[2021-06-14] MEDS: Morphine 4 MG/ML VIAL SLOW IVP PRN (11:55)
[2021-06-14] MEDS ORDERED: Morphine 4 MG/ML VIAL SLOW IVP SCH (20:00)
[2021-06-14] MEDS: ALPRAZolam 0.5 MG TAB PO SCH (20:12)
[2021-06-14] MEDS ORDERED: ALPRAZolam 0.5 MG TAB PO SCH (21:00)
[2021-06-15] MEDS: Atorvastatin Calcium 40 MG TAB PO SCH (08:00)
[2021-06-15] MEDS: Clopidogrel Bisulfate 75 MG TAB PO SCH (08:00)
[2021-06-15] MEDS: FLUoxetine HCl 10 MG CAP PO SCH (08:00)
[2021-06-15] MEDS: Carvedilol 6.25 MG TAB PO SCH ×2 (08:00→19:52)
[2021-06-15] MEDS: Amiodarone 200 MG TAB PO SCH ×2 (08:00→19:52)
[2021-06-15] MEDS: Sacubitril 49 MG/Valsartan 51 MG TABLET PO SCH ×2 (08:00→19:52)
[2021-06-15] MEDS: Morphine 4 MG/ML VIAL SLOW IVP PRN ×4 (10:46→23:52)
[2021-06-15] MEDS: Ondansetron PF 4 MG/2 ML Vial IVP PRN ×2 (15:18→21:08)
[2021-06-15] MEDS: Acetaminophen 325 MG TAB PO PRN (19:51)
[2021-06-15] MEDS: ALPRAZolam 0.5 MG TAB PO SCH (19:52)
[2021-06-16] MEDS: Carvedilol 6.25 MG TAB PO SCH ×2 (05:34→21:03)
[2021-06-16] MEDS: Morphine 4 MG/ML VIAL SLOW IVP PRN ×3 (05:48→21:03)
[2021-06-16] MEDS ORDERED: Gentamicin 80 MG/2 ML VIAL ONE (06:26)
[2021-06-16] MEDS ORDERED: Lidocaine 1% (PF) 30 ML VIAL ONE (06:26)
[2021-06-16] MEDS ORDERED: CEFAZOLIN 1 GM VIAL ONE (06:26)
[2021-06-16] MEDS ORDERED: Heparin 10,000 UNITS/ 10 ML VIAL ONE (07:36)
[2021-06-16] MEDS ORDERED: traMADol HCl 50 MG TAB PO PRN (08:05)
[2021-06-16] MEDS ORDERED: Fentanyl 100 MCG/2 ML VIAL ONE ×3 (08:22→13:54)
[2021-06-16] MEDS ORDERED: Midazolam HCl 2 mg/2 ml Vial ONE (09:16)
[2021-06-16 09:17] LABS: Anion Gap 15 mmol/L (10-20); BUN (Urea Nitrogen) 17 mg/dL (9.8-20.1); Calc. Creatinine Clearance 12 mL/min (70-130); Calcium 9.1 mg/dL (7.8-10.44); Carbon Dioxide 31 mmol/L (22-29); Chloride 95 mmol/L (98-107); Glucose 70 mg/dL (70-105); Potassium 4.1 mmol/L (3.5-5.1); Sodium 137 mmol/L (136-145)
[2021-06-16] MEDS ORDERED: diphenhydrAMINE 50 MG/ML VIAL ONE (09:38)
[2021-06-16] MEDS ORDERED: PHENYLEPHRINE-NS 100 MCG/ML 10 ML SYRINGE ONE (09:38)
[2021-06-16] MEDS ORDERED: Ondansetron PF 4 MG/2 ML Vial ONE (09:38)
[2021-06-16] MEDS ORDERED: DOPamine 400 MG/D5W 250 ML 250 ML ONE (10:32)
[2021-06-16] MEDS ORDERED: Propofol 500 MG/50 ML VIAL ONE (11:56)
[2021-06-16] MEDS: Amiodarone 200 MG TAB PO SCH ×2 (15:39→21:03)
[2021-06-16] MEDS: Sacubitril 49 MG/Valsartan 51 MG TABLET PO SCH ×2 (15:39→21:03)
[2021-06-16] MEDS: FLUoxetine HCl 10 MG CAP PO SCH (16:05)
[2021-06-16] MEDS: Clopidogrel Bisulfate 75 MG TAB PO SCH (16:06)
[2021-06-16] MEDS: Atorvastatin Calcium 40 MG TAB PO SCH (16:06)
[2021-06-16] MEDS: Cephalexin 250 MG CAP PO SCH (21:02)
[2021-06-16] MEDS: ALPRAZolam 0.5 MG TAB PO SCH (21:03)
[2021-06-17] MEDS: Morphine 4 MG/ML VIAL SLOW IVP PRN ×2 (06:20→10:48)
[2021-06-17] MEDS: Cephalexin 250 MG CAP PO SCH (08:47)
[2021-06-17] MEDS: FLUoxetine HCl 10 MG CAP PO SCH (08:48)
[2021-06-17] MEDS: Sacubitril 49 MG/Valsartan 51 MG TABLET PO SCH (08:48)
[2021-06-17] MEDS: Atorvastatin Calcium 40 MG TAB PO SCH (08:48)
[2021-06-17] MEDS: Amiodarone 200 MG TAB PO SCH (08:48)
[2021-06-17] MEDS: Clopidogrel Bisulfate 75 MG TAB PO SCH (08:48)
[2021-06-17] MEDS: Carvedilol 6.25 MG TAB PO SCH (08:48)
[2021-06-17] MEDS: Acetaminophen 325 MG TAB PO PRN (08:48)
[2021-06-17 11:07] VITALS: BP 113/52
[2021-06-17 12:11] VITALS: TEMP 98.3
[2021-06-18] MEDS ORDERED: Amiodarone 200 MG TAB PO SCH (09:00)
== END 2021-06-17 14:00 | disposition home or self-care (01) | DRG 226 ==
LOC: ERS 16:44 → IMCU/EMU 18:18
PROVIDERS: ADMIT Internal Medicine; ATTEND Internal Medicine
PROC: 5A1D70Z Performance of Urinary Filtration, Intermittent, Less than 6 Hours Per Day (ICD-10-PCS; 2021-06-14)
PROC: 0JH609Z Insertion of Cardiac Resynchronization Defibrillator Pulse Generator into Chest Subcutaneous Tissue and Fascia, Open Approach (ICD-10-PCS; principal; 2021-06-16)
PROC: 0JPT0PZ Removal of Cardiac Rhythm Related Device from Trunk Subcutaneous Tissue and Fascia, Open Approach (ICD-10-PCS; 2021-06-16)
PROC: 02583ZZ Destruction of Conduction Mechanism, Percutaneous Approach (ICD-10-PCS; 2021-06-16)
PROC: 02HL3KZ Insertion of Defibrillator Lead into Left Ventricle, Percutaneous Approach (ICD-10-PCS; 2021-06-16)
PROC: 0W9B3ZZ Drainage of Left Pleural Cavity, Percutaneous Approach (ICD-10-PCS; 2021-06-17)
DX: I49.01 Ventricular fibrillation (principal); N18.6 End stage renal disease; I21.A1 Myocardial infarction type 2; I50.22 Chronic systolic (congestive) heart failure; I13.2 Hypertensive heart and chronic kidney disease with heart failure and with stage 5 chronic kidney disease, or end stage renal disease; J90 Pleural effusion, not elsewhere classified; I42.0 Dilated cardiomyopathy; Z20.822 Contact with and (suspected) exposure to COVID-19; I48.0 Paroxysmal atrial fibrillation; D63.1 Anemia in chronic kidney disease; I47.2 Ventricular tachycardia; I48.92 Unspecified atrial flutter; E78.5 Hyperlipidemia, unspecified; Z90.49 Acquired absence of other specified parts of digestive tract; X58.XXXD Exposure to other specified factors, subsequent encounter; S22.49XD Multiple fractures of ribs, unspecified side, subsequent encounter for fracture with routine healing; Z99.2 Dependence on renal dialysis; Z95.810 Presence of automatic (implantable) cardiac defibrillator; Z88.5 Allergy status to narcotic agent; Z88.8 Allergy status to other drugs, medicaments and biological substances; Z79.01 Long term (current) use of anticoagulants; Z79.899 Other long term (current) drug therapy; Z87.891 Personal history of nicotine dependence; Z90.5 Acquired absence of kidney
CPT/HCPCS: 33225; 33263; 36415; 71045; 80048; 80053; 82553; 83735; 83880; 84484; 85025; 87340; 88112; 88305; 90935; 93005; 93010; 93306; 93613; 93650; 93798; 96365; 96366; 96368; 96372; 96375; 96376; C1732; C1763; C1776; C1882; C1898; G0257; J0282; J0690; J1200; J1265; J1580; J1644; J1650; J2001; J2250; J2270; J2405; J2704; J3010; J3475; J7070; U0002

== ENCOUNTER 2021-06-23 15:28 | Inpatient (IN) | payer MEDICARE, MEDICAID ==
[2021-06-23 16:19] LABS: #Eosinphils 0.1 thou/uL (0.0-0.7); #Lymphocytes 1.1 thou/uL (1.20-3.40); #Monocytes 0.3 thou/uL (0.11-0.59); #Neutrophils 2.2 thou/uL (1.40-6.50); %Eosinophils 3.4 % (0.0-10.0); %Lymphocytes 28.4 % (21.0-51.0); %Monocytes 8.4 % (0.0-10.0); %Neutrophils 58.8 % (42.0-75.0); Hemoglobin 8.9 g/dL (12.0-16.0); Mean Corpuscular Hemoglobin 31.8 pg (27.0-31.0); Mean Platelet Volume 7.1 fL (7.4-10.4); Platelet Count 275 thou/uL (130-400); RBC Distribution Width 16.7 % (11.5-14.5); Red Blood Cell (RBC) Count 2.79 mill/uL (4.20-5.40); White Blood Cell (WBC) Count 3.8 thou/uL (4.8-10.8)
[2021-06-23 16:41] LABS: ALT (SGPT) Less than 7 U/L (8-55); AST (SGOT) 22 U/L (5-34); Albumin 2.8 g/dL (3.5-5.0); Alkaline Phosphatase 79 U/L (40-110); BUN (Urea Nitrogen) 8 mg/dL (9.8-20.1); Bilirubin, Total 0.5 mg/dL (0.2-1.2); Calc. Creatinine Clearance 0 mL/min (70-130); Calcium 8.9 mg/dL (7.8-10.44); Globulin 3.5 g/dL (2.4-3.5); Glucose 80 mg/dL (70-105); Lipase 16 U/L (8-78); Protein, Total 6.3 g/dL (6.0-8.3)
[2021-06-23 16:51] LABS: Anion Gap 14 mmol/L (10-20); Carbon Dioxide 38 mmol/L (22-29); Chloride 94 mmol/L (98-107); Sodium 143 mmol/L (136-145)
[2021-06-23] MEDS ORDERED: Nitroglycerin 2% Ointment 1 INCH/1 GM Packet ONE (17:39)
[2021-06-23] MEDS ORDERED: Lorazepam 2 MG/ML VIAL ONE (17:39)
[2021-06-23] MEDS ORDERED: Nitroglycerin 0.4 MG TAB (25 Tab Bottle) SL PRN (18:42)
[2021-06-23] MEDS ORDERED: Ondansetron PF 4 MG/2 ML Vial IVP PRN (18:42)
[2021-06-23] MEDS ORDERED: Acetaminophen 325 MG TAB PO PRN (18:42)
[2021-06-23] MEDS ORDERED: ALPRAZolam 1 MG TAB PO PRN (18:50)
[2021-06-23 20:37] LABS: Troponin I 0.107 ng/mL (< 0.028)
[2021-06-23] MEDS ORDERED: Heparin 5,000 UNITS/ML VIAL SC SCH (21:00)
[2021-06-23 21:27] LABS: Magnesium 1.8 mg/dL (1.6-2.6)
[2021-06-23] MEDS ORDERED: Magnesium 2 GM/50 ML 2 GM in Premix Bag 1 BAG IVPB SCH (22:15)
[2021-06-23] MEDS: Fentanyl 100 MCG/2 ML VIAL SLOW IVP PRN (22:40)
[2021-06-23 22:51] VITALS: BMI 23.7
[2021-06-23 22:56] LABS: Troponin I 0.118 ng/mL (< 0.028)
[2021-06-23] MEDS ORDERED: Promethazine HCl 12.5 MG in Sodium Chloride 0.9% 50 ML IVPB PRN (23:26)
[2021-06-23] MEDS ORDERED: Pantoprazole 40 MG VIAL IVP SCH (23:45)
[2021-06-23] MEDS: Potassium Chloride 20 MEQ TAB PO SCH (23:59)
[2021-06-24] MEDS ORDERED: Fentanyl 100 MCG/2 ML VIAL SLOW IVP SCH ×2 (00:15→06:45)
[2021-06-24] MEDS: Potassium Chloride 20 MEQ in Premix Bag 1 BAG IVPB SCH ×2 (00:54→02:58)
[2021-06-24] MEDS: Apixaban 2.5 MG TAB PO SCH ×3 (01:33→21:59)
[2021-06-24] MEDS: Sacubitril 49 MG/Valsartan 51 MG TABLET PO SCH ×3 (01:33→21:59)
[2021-06-24] MEDS: HYDROmorphone 0.5 MG/0.5 ML SYRINGE SLOW IVP SCH ×2 (02:18→03:32)
[2021-06-24] MEDS ORDERED: Promethazine HCl 25 MG/ML VIAL IM SCH (03:30)
[2021-06-24] MEDS ORDERED: Nitroglycerin 2% Ointment 1 INCH/1 GM Packet TOP SCH (03:30)
[2021-06-24 05:11] LABS: #Lymphocytes 0.9 thou/uL (1.20-3.40); #Monocytes 0.3 thou/uL (0.11-0.59); #Neutrophils 3.3 thou/uL (1.40-6.50); %Basophils 0.6 % (0.0-1.0); %Eosinophils 0.8 % (0.0-10.0); %Lymphocytes 18.9 % (21.0-51.0); %Monocytes 6.7 % (0.0-10.0); %Neutrophils 73.1 % (42.0-75.0); Hemoglobin 8.2 g/dL (12.0-16.0); Mean Corpuscular HGB CONC 31.4 g/dL (32.0-36.0); Mean Corpuscular Hemoglobin 32.8 pg (27.0-31.0); Mean Platelet Volume 7.3 fL (7.4-10.4); Platelet Count 262 thou/uL (130-400); RBC Distribution Width 16.5 % (11.5-14.5); Red Blood Cell (RBC) Count 2.49 mill/uL (4.20-5.40); White Blood Cell (WBC) Count 4.5 thou/uL (4.8-10.8)
[2021-06-24 05:32] LABS: Anion Gap 13 mmol/L (10-20); BUN (Urea Nitrogen) 10 mg/dL (9.8-20.1); Calc. Creatinine Clearance 22 mL/min (70-130); Calcium 8.7 mg/dL (7.8-10.44); Carbon Dioxide 36 mmol/L (22-29); Chloride 95 mmol/L (98-107); Glucose 88 mg/dL (70-105); Sodium 140 mmol/L (136-145)
[2021-06-24] MEDS ORDERED: Amiodarone 200 MG TAB PO SCH ×2 (05:59→09:00)
[2021-06-24] MEDS ORDERED: Clopidogrel Bisulfate 75 MG TAB PO SCH ×3 (06:15→09:00)
[2021-06-24] MEDS ORDERED: hydrALAZINE 20 MG/ML VIAL SLOW IVP PRN (06:17)
[2021-06-24] MEDS ORDERED: Scopolamine 1.5 mg/72 hour Patch TD SCH (06:30)
[2021-06-24] MEDS ORDERED: Pantoprazole 40 MG VIAL IVP SCH (09:00)
[2021-06-24] MEDS ORDERED: Aspirin Chewable 81 MG TAB PO SCH (09:00)
[2021-06-24] MEDS ORDERED: Iopamidol 370 76% 100 ML VIAL ONE (09:43)
[2021-06-24] MEDS ORDERED: Albuterol 200 PUFF (6.7GM INHALER) INH PRN (09:51)
[2021-06-24 11:15] LABS: SARS-CoV-2 PCR by NAA Not Detected (NotDetected)
[2021-06-24] MEDS: Mometasone 100 MCG/Formoterol 5 MCG 120 PUFF INHALER INH SCH ×2 (11:31→18:29)
[2021-06-24] MEDS: Ondansetron ODT 4 MG TAB PO PRN ×2 (11:36→20:03)
[2021-06-24] MEDS ORDERED: Polyethylene Glycol 3350 17 GM Packet PO PRN (15:38)
[2021-06-24] MEDS ORDERED: Albuterol Sulfate 2.5 mg/3 ml Neb NEB PRN (16:16)
[2021-06-24] MEDS: traMADol HCl 50 MG TAB PO PRN (16:46)
[2021-06-24] MEDS: Sevelamer Carbonate 800 MG TAB PO SCH (17:01)
[2021-06-24] MEDS: Nitroglycerin 2% Ointment 1 INCH/1 GM Packet TOP SCH (18:31)
[2021-06-24] MEDS: Fentanyl 100 MCG/2 ML VIAL SLOW IVP PRN (20:02)
[2021-06-24] MEDS: Atorvastatin Calcium 40 MG TAB PO SCH (21:59)
[2021-06-24] MEDS: Carvedilol 3.125 MG TAB PO SCH (21:59)
[2021-06-24] MEDS: FLUoxetine HCl 20 MG CAP PO SCH (21:59)
[2021-06-25] MEDS: Mometasone 100 MCG/Formoterol 5 MCG 120 PUFF INHALER INH SCH ×2 (06:25→19:59)
[2021-06-25] MEDS: Nitroglycerin 2% Ointment 1 INCH/1 GM Packet TOP SCH ×2 (06:25→19:59)
[2021-06-25] MEDS: traMADol HCl 50 MG TAB PO PRN ×2 (06:32→21:59)
[2021-06-25] MEDS: Ondansetron ODT 4 MG TAB PO PRN (07:33)
[2021-06-25] MEDS: Sevelamer Carbonate 800 MG TAB PO SCH ×3 (09:18→19:47)
[2021-06-25 11:08] LABS: #Eosinphils 0.1 thou/uL (0.0-0.7); #Lymphocytes 1.3 thou/uL (1.20-3.40); #Monocytes 0.5 thou/uL (0.11-0.59); %Basophils 0.4 % (0.0-1.0); %Eosinophils 0.8 % (0.0-10.0); %Lymphocytes 18.8 % (21.0-51.0); %Monocytes 7.4 % (0.0-10.0); %Neutrophils 72.7 % (42.0-75.0); Hemoglobin 7.9 g/dL (12.0-16.0); Hypochromia SLIGHT = 6-15 cells (100X) (0-5/hpf); MDiff Complete? YES; Macrocytosis SLIGHT = 6-15 cells (100X) (0-5/hpf); Mean Corpuscular HGB CONC 30.1 g/dL (32.0-36.0); Mean Corpuscular Hemoglobin 32.4 pg (27.0-31.0); Mean Platelet Volume 7.4 fL (7.4-10.4); Ovalocytes SLIGHT = 2-5 cells (100X) (0-1/hpf); Platelet Count 277 thou/uL (130-400); Polychromasia SLIGHT = 2-3 cells (100X) (0-2/hpf); Red Blood Cell (RBC) Count 2.43 mill/uL (4.20-5.40); White Blood Cell (WBC) Count 6.9 thou/uL (4.8-10.8)
[2021-06-25 11:19] LABS: Anion Gap 15 mmol/L (10-20); BUN (Urea Nitrogen) 19 mg/dL (9.8-20.1); Calc. Creatinine Clearance 15 mL/min (70-130); Calcium 9.3 mg/dL (7.8-10.44); Carbon Dioxide 33 mmol/L (22-29); Chloride 93 mmol/L (98-107); Glucose 93 mg/dL (70-105); Potassium 4.5 mmol/L (3.5-5.1); Sodium 136 mmol/L (136-145)
[2021-06-25] MEDS: Sacubitril 49 MG/Valsartan 51 MG TABLET PO SCH ×2 (11:22→21:58)
[2021-06-25] MEDS: Apixaban 2.5 MG TAB PO SCH ×2 (11:23→21:57)
[2021-06-25] MEDS: Carvedilol 3.125 MG TAB PO SCH ×2 (11:23→21:57)
[2021-06-25] MEDS: Clopidogrel Bisulfate 75 MG TAB PO SCH (11:23)
[2021-06-25] MEDS: EPOETIN ALFA-EPBX (ESRD) 2,000 UNIT/ML VIAL SC SCH (11:23)
[2021-06-25] MEDS: Folic Acid/Vit B Comp W-C PO SCH (11:23)
[2021-06-25] MEDS: FLUoxetine HCl 20 MG CAP PO SCH (21:57)
[2021-06-25] MEDS: Atorvastatin Calcium 40 MG TAB PO SCH (21:57)
[2021-06-26 05:53] LABS: Hemoglobin 7.7 g/dL (12.0-16.0); Platelet Count 280 thou/uL (130-400)
[2021-06-26] MEDS: Nitroglycerin 2% Ointment 1 INCH/1 GM Packet TOP SCH ×2 (06:11→17:28)
[2021-06-26] MEDS: Mometasone 100 MCG/Formoterol 5 MCG 120 PUFF INHALER INH SCH ×2 (06:12→17:30)
[2021-06-26 06:31] LABS: Anion Gap 13 mmol/L (10-20); BUN (Urea Nitrogen) 14 mg/dL (9.8-20.1); Calc. Creatinine Clearance 20 mL/min (70-130); Carbon Dioxide 34 mmol/L (22-29); Chloride 97 mmol/L (98-107); Glucose 80 mg/dL (70-105); Magnesium 2.1 mg/dL (1.6-2.6); Potassium 4.5 mmol/L (3.5-5.1); Sodium 139 mmol/L (136-145)
[2021-06-26] MEDS: Folic Acid/Vit B Comp W-C PO SCH (07:39)
[2021-06-26] MEDS: Sevelamer Carbonate 800 MG TAB PO SCH ×3 (07:39→17:34)
[2021-06-26] MEDS: Carvedilol 3.125 MG TAB PO SCH ×2 (07:40→21:18)
[2021-06-26] MEDS: Apixaban 2.5 MG TAB PO SCH ×2 (07:40→21:18)
[2021-06-26] MEDS: Sacubitril 49 MG/Valsartan 51 MG TABLET PO SCH ×2 (07:40→21:18)
[2021-06-26] MEDS: Ondansetron ODT 4 MG TAB PO PRN ×2 (07:40→15:11)
[2021-06-26] MEDS: Clopidogrel Bisulfate 75 MG TAB PO SCH (07:40)
[2021-06-26] MEDS: traMADol HCl 50 MG TAB PO PRN (15:11)
[2021-06-26] MEDS: Atorvastatin Calcium 40 MG TAB PO SCH (21:18)
[2021-06-26] MEDS: FLUoxetine HCl 20 MG CAP PO SCH (21:18)
[2021-06-27] MEDS: Nitroglycerin 2% Ointment 1 INCH/1 GM Packet TOP SCH ×2 (05:26→17:40)
[2021-06-27] MEDS: Mometasone 100 MCG/Formoterol 5 MCG 120 PUFF INHALER INH SCH ×2 (05:29→17:40)
[2021-06-27] MEDS: Sevelamer Carbonate 800 MG TAB PO SCH ×3 (08:13→16:21)
[2021-06-27] MEDS: Sacubitril 49 MG/Valsartan 51 MG TABLET PO SCH ×2 (08:13→20:51)
[2021-06-27] MEDS: Folic Acid/Vit B Comp W-C PO SCH (08:13)
[2021-06-27] MEDS: Carvedilol 3.125 MG TAB PO SCH ×2 (08:14→20:51)
[2021-06-27] MEDS: Apixaban 2.5 MG TAB PO SCH ×2 (08:14→20:51)
[2021-06-27] MEDS: Clopidogrel Bisulfate 75 MG TAB PO SCH (08:14)
[2021-06-27 08:50] LABS: Anion Gap 16 mmol/L (10-20); BUN (Urea Nitrogen) 24 mg/dL (9.8-20.1); Calc. Creatinine Clearance 14 mL/min (70-130); Calcium 9.4 mg/dL (7.8-10.44); Carbon Dioxide 30 mmol/L (22-29); Chloride 95 mmol/L (98-107); Glucose 68 mg/dL (70-105); Magnesium 2.3 mg/dL (1.6-2.6); Potassium 4.3 mmol/L (3.5-5.1); Sodium 137 mmol/L (136-145)
[2021-06-27] MEDS ORDERED: HYDROcodone/Acetaminophen 5/325 mg Tablet PO PRN (12:19)
[2021-06-27] MEDS: Atorvastatin Calcium 40 MG TAB PO SCH (20:51)
[2021-06-27] MEDS: FLUoxetine HCl 20 MG CAP PO SCH (20:51)
[2021-06-28 05:37] LABS: Anion Gap 33 mmol/L (10-20); BUN (Urea Nitrogen) 29 mg/dL (9.8-20.1); Calc. Creatinine Clearance 12 mL/min (70-130); Calcium 9.6 mg/dL (7.8-10.44); Carbon Dioxide 15 mmol/L (22-29); Chloride 93 mmol/L (98-107); Glucose 67 mg/dL (70-105); Magnesium 2.3 mg/dL (1.6-2.6); Sodium 137 mmol/L (136-145)
[2021-06-28] MEDS: Mometasone 100 MCG/Formoterol 5 MCG 120 PUFF INHALER INH SCH ×2 (05:54→17:47)
[2021-06-28] MEDS: Nitroglycerin 2% Ointment 1 INCH/1 GM Packet TOP SCH (05:54)
[2021-06-28] MEDS: Sevelamer Carbonate 800 MG TAB PO SCH ×4 (08:37→16:01)
[2021-06-28] MEDS: Clopidogrel Bisulfate 75 MG TAB PO SCH ×2 (08:38→13:20)
[2021-06-28] MEDS: Carvedilol 3.125 MG TAB PO SCH ×3 (08:38→20:26)
[2021-06-28] MEDS: Sacubitril 49 MG/Valsartan 51 MG TABLET PO SCH ×3 (08:38→20:26)
[2021-06-28] MEDS: Folic Acid/Vit B Comp W-C PO SCH ×2 (08:38→13:20)
[2021-06-28] MEDS: Apixaban 2.5 MG TAB PO SCH ×3 (08:38→20:26)
[2021-06-28] MEDS: traMADol HCl 50 MG TAB PO PRN ×2 (08:40→13:20)
[2021-06-28] MEDS ORDERED: EPOETIN ALFA-EPBX (ESRD) 4,000 UNIT/ML VIAL SC SCH (10:00)
[2021-06-28] MEDS: Sucralfate 1 GM TAB PO SCH ×2 (16:01→20:26)
[2021-06-28] MEDS: EPOETIN ALFA-EPBX (ESRD) 2,000 UNIT/ML VIAL SC SCH (16:02)
[2021-06-28] MEDS: Atorvastatin Calcium 40 MG TAB PO SCH (20:26)
[2021-06-28] MEDS: FLUoxetine HCl 20 MG CAP PO SCH (20:26)
[2021-06-29 05:51] LABS: Anion Gap 10 mmol/L (10-20); BUN (Urea Nitrogen) 16 mg/dL (9.8-20.1); Calc. Creatinine Clearance 17 mL/min (70-130); Calcium 9.1 mg/dL (7.8-10.44); Carbon Dioxide 35 mmol/L (22-29); Chloride 98 mmol/L (98-107); Glucose 87 mg/dL (70-105); Magnesium 2.1 mg/dL (1.6-2.6); Potassium 3.7 mmol/L (3.5-5.1); Sodium 139 mmol/L (136-145)
[2021-06-29] MEDS: Mometasone 100 MCG/Formoterol 5 MCG 120 PUFF INHALER INH SCH ×2 (05:56→17:00)
[2021-06-29] MEDS: Sucralfate 1 GM TAB PO SCH ×3 (08:25→17:00)
[2021-06-29] MEDS: Clopidogrel Bisulfate 75 MG TAB PO SCH (08:26)
[2021-06-29] MEDS: Folic Acid/Vit B Comp W-C PO SCH (08:26)
[2021-06-29] MEDS: Sacubitril 49 MG/Valsartan 51 MG TABLET PO SCH (08:26)
[2021-06-29] MEDS: Carvedilol 3.125 MG TAB PO SCH (08:26)
[2021-06-29] MEDS: Apixaban 2.5 MG TAB PO SCH (08:26)
[2021-06-29] MEDS: Sevelamer Carbonate 800 MG TAB PO SCH ×3 (08:26→16:59)
[2021-06-29] MEDS ORDERED: Potassium Chloride 20 MEQ TAB PO SCH (13:00)
[2021-06-29 15:39] VITALS: BP 158/76; TEMP 98.7
[2021-06-30] MEDS ORDERED: EPOETIN ALFA-EPBX (ESRD) 4,000 UNIT/ML VIAL SC SCH (09:00)
== END 2021-06-29 18:01 | disposition home or self-care (01) | DRG 308 ==
LOC: ERS 15:28 → 2SW 18:17 → OBSVTOIN 06-24 15:49
PROVIDERS: ADMIT Student in an Organized Health Care Education/Training Program; ATTEND Internal Medicine
PROC: 4B02XTZ Measurement of Cardiac Defibrillator, External Approach (ICD-10-PCS; principal; 2021-06-25)
PROC: 5A1D70Z Performance of Urinary Filtration, Intermittent, Less than 6 Hours Per Day (ICD-10-PCS; 2021-06-25)
DX: I47.2 Ventricular tachycardia (principal); N18.6 End stage renal disease; I50.33 Acute on chronic diastolic (congestive) heart failure; Z20.822 Contact with and (suspected) exposure to COVID-19; G93.41 Metabolic encephalopathy; Q61.2 Polycystic kidney, adult type; I42.0 Dilated cardiomyopathy; T46.2X5A Adverse effect of other antidysrhythmic drugs, initial encounter; E87.6 Hypokalemia; E83.42 Hypomagnesemia; D63.1 Anemia in chronic kidney disease; I08.3 Combined rheumatic disorders of mitral, aortic and tricuspid valves; I11.0 Hypertensive heart disease with heart failure; I48.0 Paroxysmal atrial fibrillation; Z99.2 Dependence on renal dialysis; Z95.810 Presence of automatic (implantable) cardiac defibrillator; Z86.74 Personal history of sudden cardiac arrest; Z86.73 Personal history of transient ischemic attack (TIA), and cerebral infarction without residual deficits; Z88.6 Allergy status to analgesic agent; Z88.8 Allergy status to other drugs, medicaments and biological substances; Z79.899 Other long term (current) drug therapy; Z79.01 Long term (current) use of anticoagulants; Z79.02 Long term (current) use of antithrombotics/antiplatelets; Z98.51 Tubal ligation status; Z90.49 Acquired absence of other specified parts of digestive tract; Z90.5 Acquired absence of kidney; Z87.891 Personal history of nicotine dependence
CPT/HCPCS: 36415; 70450; 71045; 71275; 74174; 80048; 80053; 82553; 83690; 83735; 84484; 85014; 85018; 85025; 85049; 90935; 93005; 93010; 93306; 93880; 94760; 95816; 95819; 95957; 96372; 96374; 96375; 96376; C9113; G0257; G0378; J0360; J2060; J2405; J2550; J3010; J3475; J3480; Q0162; Q5105; Q9967; U0003; U0005

== ENCOUNTER 2021-06-30 19:00 | Inpatient (IN) | payer OTHER, MEDICARE, MEDICAID ==
[2021-06-30 19:28] LABS: #Eosinphils 0.1 thou/uL (0.0-0.7); #Lymphocytes 1.4 thou/uL (1.20-3.40); #Monocytes 0.5 thou/uL (0.11-0.59); #Neutrophils 4.6 thou/uL (1.40-6.50); %Basophils 0.7 % (0.0-1.0); %Eosinophils 1.5 % (0.0-10.0); %Lymphocytes 21.4 % (21.0-51.0); %Monocytes 7.3 % (0.0-10.0); %Neutrophils 69.1 % (42.0-75.0); Hemoglobin 8.1 g/dL (12.0-16.0); Mean Corpuscular Hemoglobin 32.5 pg (27.0-31.0); Mean Platelet Volume 7.1 fL (7.4-10.4); Platelet Count 239 thou/uL (130-400); RBC Distribution Width 17.4 % (11.5-14.5); White Blood Cell (WBC) Count 6.7 thou/uL (4.8-10.8)
[2021-06-30 20:17] LABS: ALT (SGPT) 58 U/L (8-55); AST (SGOT) 92 U/L (5-34); Albumin 2.7 g/dL (3.5-5.0); Alkaline Phosphatase 66 U/L (40-110); Anion Gap 11 mmol/L (10-20); BUN (Urea Nitrogen) 9 mg/dL (9.8-20.1); Bilirubin, Total 0.5 mg/dL (0.2-1.2); Calc. Creatinine Clearance 0 mL/min (70-130); Calcium 8.4 mg/dL (7.8-10.44); Carbon Dioxide 37 mmol/L (22-29); Chloride 96 mmol/L (98-107); Globulin 3.2 g/dL (2.4-3.5); Glucose 91 mg/dL (70-105); Potassium 3.6 mmol/L (3.5-5.1); Protein, Total 5.9 g/dL (6.0-8.3); Sodium 140 mmol/L (136-145)
[2021-06-30] MEDS ORDERED: Morphine 4 MG/ML VIAL ONE (20:22)
[2021-06-30] MEDS ORDERED: Ondansetron PF 4 MG/2 ML Vial ONE (20:22)
[2021-06-30 20:24] LABS: CKMB 1.2 ng/mL (0-6.6)
[2021-06-30 22:31] LABS: INR-International Normal Ratio 1.5; Prothrombin Time 17.9 sec (12.0-14.7)
[2021-06-30 22:32] LABS: PTT 43.2 sec (22.9-36.1)
[2021-06-30 22:44] LABS: SARS-CoV-2 NAA Rapid Test Not Detected (NotDetected)
[2021-06-30 23:07] LABS: Troponin I 0.123 ng/mL (< 0.028)
[2021-06-30] MEDS ORDERED: Acetaminophen 325 MG TAB PO PRN (23:10)
[2021-06-30] MEDS ORDERED: Ondansetron PF 4 MG/2 ML Vial IVP PRN (23:10)
[2021-06-30] MEDS ORDERED: Dextrose 50% Abboject 50 ML SYRINGE SLOW IVP PRN (23:10)
[2021-06-30] MEDS ORDERED: Dextrose 5% in Water 1,000 ML IV PRN (23:10)
[2021-06-30] MEDS ORDERED: hydrALAZINE 20 MG/ML VIAL SLOW IVP PRN (23:10)
[2021-06-30 23:33] LABS: Magnesium 1.9 mg/dL (1.6-2.6)
[2021-06-30 23:40] LABS: Phosphorus 1.2 mg/dL (2.3-4.7)
[2021-06-30] MEDS ORDERED: Magnesium Sulfate 2 GM in Sodium Chloride 0.9% 100 ML IVPB SCH (23:41)
[2021-06-30] MEDS ORDERED: Lorazepam 2 MG/ML VIAL ONE (23:45)
[2021-06-30] MEDS ORDERED: Potassium Phosphate 30 MMOL, Magnesium Sulfate 2 GM in Sodium Chloride 0.9% 250 ML IVPB SCH (23:45)
[2021-07-01] MEDS ORDERED: ADMIXTURE FEE IV SCH (00:15)
[2021-07-01] MEDS ORDERED: HUMAN PROTHROMBIN COMPLX IV SCH (00:15)
[2021-07-01 00:49] VITALS: BMI 22.4
[2021-07-01 01:45] LABS: Troponin I 0.131 ng/mL (< 0.028)
[2021-07-01 04:46] LABS: #Eosinphils 0.2 thou/uL (0.0-0.7); #Lymphocytes 1.9 thou/uL (1.20-3.40); #Monocytes 0.5 thou/uL (0.11-0.59); #Neutrophils 2.9 thou/uL (1.40-6.50); %Basophils 0.8 % (0.0-1.0); %Eosinophils 3.2 % (0.0-10.0); %Monocytes 9.2 % (0.0-10.0); %Neutrophils 52.9 % (42.0-75.0); Mean Corpuscular HGB CONC 30.8 g/dL (32.0-36.0); Mean Corpuscular Hemoglobin 32.9 pg (27.0-31.0); Mean Platelet Volume 7.2 fL (7.4-10.4); Platelet Count 232 thou/uL (130-400); RBC Distribution Width 17.6 % (11.5-14.5); Red Blood Cell (RBC) Count 2.42 mill/uL (4.20-5.40); White Blood Cell (WBC) Count 5.5 thou/uL (4.8-10.8)
[2021-07-01 05:24] LABS: Anion Gap 14 mmol/L (10-20); Carbon Dioxide 36 mmol/L (22-29); Chloride 95 mmol/L (98-107); Sodium 141 mmol/L (136-145)
[2021-07-01 05:27] LABS: BUN (Urea Nitrogen) 10 mg/dL (9.8-20.1); Calc. Creatinine Clearance 20 mL/min (70-130); Calcium 8.4 mg/dL (7.8-10.44); Glucose 70 mg/dL (70-105); Magnesium 2.6 mg/dL (1.6-2.6); Phosphorus 4.2 mg/dL (2.3-4.7)
[2021-07-01] MEDS ORDERED: Albuterol Sulfate 2.5 mg/3 ml Neb NEB PRN (07:40)
[2021-07-01] MEDS ORDERED: ALPRAZolam 1 MG TAB PO PRN (07:40)
[2021-07-01] MEDS ORDERED: Polyethylene Glycol 3350 17 GM Packet PO PRN (07:40)
[2021-07-01] MEDS ORDERED: Mometasone 200 MCG/Formoterol 5 MCG 120 PUFF INHALER INH PRN (08:59)
[2021-07-01] MEDS ORDERED: Atorvastatin Calcium 40 MG TAB PO SCH ×2 (09:00→21:00)
[2021-07-01] MEDS ORDERED: Famotidine/PF 20 mg/2ml Vial SLOW IVP SCH (09:00)
[2021-07-01] MEDS: Sevelamer Carbonate 800 MG TAB PO SCH ×3 (09:47→18:00)
[2021-07-01] MEDS: Carvedilol 3.125 MG TAB PO SCH ×2 (09:47→20:17)
[2021-07-01 13:56] VITALS: BP 128/87
[2021-07-01] MEDS ORDERED: Acetaminophen/Codeine 30-300mg Tablet PO PRN (16:31)
[2021-07-01] MEDS ORDERED: Potassium Chloride 10 MEQ in Premix Bag 1 BAG IVPB SCH (18:00)
[2021-07-01] MEDS: Morphine 4 MG/ML VIAL SLOW IVP PRN (20:44)
[2021-07-01] MEDS ORDERED: FLUoxetine HCl 20 MG CAP PO SCH (21:00)
[2021-07-01] MEDS: Acetaminophen 325 MG TAB PO SCH (21:12)
[2021-07-01] MEDS: Acetaminophen/Codeine 30-300mg Tablet PO SCH (23:35)
[2021-07-02] MEDS: Acetaminophen 325 MG TAB PO SCH ×3 (03:32→15:04)
[2021-07-02] MEDS: Morphine 4 MG/ML VIAL SLOW IVP PRN (03:38)
[2021-07-02 04:16] LABS: Anion Gap 12 mmol/L (10-20); BUN (Urea Nitrogen) 15 mg/dL (9.8-20.1); Calc. Creatinine Clearance 14 mL/min (70-130); Calcium 8.4 mg/dL (7.8-10.44); Carbon Dioxide 36 mmol/L (22-29); Chloride 93 mmol/L (98-107); Glucose 92 mg/dL (70-105); Magnesium 2.4 mg/dL (1.6-2.6); Phosphorus 3.8 mg/dL (2.3-4.7); Potassium 4.1 mmol/L (3.5-5.1); Sodium 137 mmol/L (136-145)
[2021-07-02] MEDS: Acetaminophen/Codeine 30-300mg Tablet PO SCH ×3 (06:12→17:24)
[2021-07-02] MEDS ORDERED: EPOETIN ALFA-EPBX (ESRD) 4,000 UNIT/ML VIAL SC SCH (09:00)
[2021-07-02] MEDS ORDERED: Folic Acid/Vit B Comp W-C PO SCH (09:00)
[2021-07-02] MEDS: Sevelamer Carbonate 800 MG TAB PO SCH ×3 (09:01→17:24)
[2021-07-02] MEDS: Carvedilol 3.125 MG TAB PO SCH (09:14)
[2021-07-02] MEDS ORDERED: ALPRAZolam 1 MG TAB PO SCH (13:00)
[2021-07-02 18:29] VITALS: TEMP 98.5
== END 2021-07-02 19:20 | disposition short-term general hospital (02) | DRG 85 ==
LOC: ERS 19:00 → CCU 22:15 → IMCU/EMU 07-01 18:36
PROVIDERS: ADMIT Specialist; ATTEND Surgery
PROC: 30283B1 Transfusion of Nonautologous 4-Factor Prothrombin Complex Concentrate into Vein, Percutaneous Approach (ICD-10-PCS; principal; 2021-06-30)
PROC: 4B02XTZ Measurement of Cardiac Defibrillator, External Approach (ICD-10-PCS; 2021-06-30)
PROC: 06HY33Z Insertion of Infusion Device into Lower Vein, Percutaneous Approach (ICD-10-PCS; 2021-06-30)
DX: S06.4X1A Epidural hemorrhage with loss of consciousness of 30 minutes or less, initial encounter (principal); N18.6 End stage renal disease; I47.2 Ventricular tachycardia; I42.8 Other cardiomyopathies; Q61.3 Polycystic kidney, unspecified; Z20.822 Contact with and (suspected) exposure to COVID-19; I50.9 Heart failure, unspecified; E83.39 Other disorders of phosphorus metabolism; R29.6 Repeated falls; D63.1 Anemia in chronic kidney disease; E87.6 Hypokalemia; R40.2362 Coma scale, best motor response, obeys commands, at arrival to emergency department; R40.2142 Coma scale, eyes open, spontaneous, at arrival to emergency department; R40.2252 Coma scale, best verbal response, oriented, at arrival to emergency department; I48.0 Paroxysmal atrial fibrillation; W01.198A Fall on same level from slipping, tripping and stumbling with subsequent striking against other object, initial encounter; Z95.810 Presence of automatic (implantable) cardiac defibrillator; Z87.891 Personal history of nicotine dependence; Z99.2 Dependence on renal dialysis; Z88.7 Allergy status to serum and vaccine; Z86.74 Personal history of sudden cardiac arrest; Z76.82 Awaiting organ transplant status; Z86.73 Personal history of transient ischemic attack (TIA), and cerebral infarction without residual deficits; Y92.002 Bathroom of unspecified non-institutional (private) residence as the place of occurrence of the external cause; Z90.49 Acquired absence of other specified parts of digestive tract; Z91.81 History of falling; Z90.5 Acquired absence of kidney
CPT/HCPCS: 36415; 36556; 70450; 71045; 80048; 80053; 82553; 83735; 84100; 84484; 85025; 85610; 85730; 90935; 93005; 96365; 96366; 96368; 96375; G0257; J2060; J2270; J2405; J3475; J3480; J7030; J7168; Q5105; U0002

== ENCOUNTER 2021-09-20 00:53 | Emergency (ER) | payer MEDICARE, MEDICAID ==
[2021-09-20 01:25] LABS: #Eosinphils 0.1 thou/uL (0.0-0.7); #Monocytes 0.3 thou/uL (0.11-0.59); #Neutrophils 2.1 thou/uL (1.40-6.50); %Basophils 0.9 % (0.0-1.0); %Eosinophils 2.7 % (0.0-10.0); %Lymphocytes 44.2 % (21.0-51.0); %Monocytes 7.1 % (0.0-10.0); %Neutrophils 45.1 % (42.0-75.0); Hemoglobin 11.8 g/dL (12.0-16.0); Mean Corpuscular HGB CONC 30.5 g/dL (32.0-36.0); Mean Corpuscular Hemoglobin 34.9 pg (27.0-31.0); Mean Platelet Volume 7.4 fL (7.4-10.4); Platelet Count 154 thou/uL (130-400); RBC Distribution Width 16.8 % (11.5-14.5); Red Blood Cell (RBC) Count 3.37 mill/uL (4.20-5.40); White Blood Cell (WBC) Count 4.6 thou/uL (4.8-10.8)
[2021-09-20 02:08] LABS: CKMB 2.4 ng/mL (0-6.6)
[2021-09-20 02:11] LABS: ALT (SGPT) 10 U/L (8-55); AST (SGOT) 21 U/L (5-34); Albumin 3.4 g/dL (3.5-5.0); Alkaline Phosphatase 69 U/L (40-110); Anion Gap 18 mmol/L (10-20); BUN (Urea Nitrogen) 23 mg/dL (9.8-20.1); Calc. Creatinine Clearance 0 mL/min (70-130); Calcium 9.6 mg/dL (7.8-10.44); Carbon Dioxide 33 mmol/L (22-29); Chloride 95 mmol/L (98-107); Globulin 3.2 g/dL (2.4-3.5); Glucose 77 mg/dL (70-105); Magnesium 2.7 mg/dL (1.6-2.6); Potassium 5.8 mmol/L (3.5-5.1); Protein, Total 6.6 g/dL (6.0-8.3); Sodium 140 mmol/L (136-145)
[2021-09-20] MEDS ORDERED: Fentanyl 100 MCG/2 ML VIAL ONE (02:18)
[2021-09-20 03:27] LABS: Bilirubin, Total 0.5 mg/dL (0.2-1.2)
[2021-09-20] MEDS ORDERED: Ketorolac Tromethamine 30 MG/ML VIAL ONE (04:02)
[2021-09-20] MEDS ORDERED: Acetaminophen 500 MG TAB ONE (04:04)
[2021-09-20] MEDS ORDERED: Iopamidol-370 76% 500 ML 1 ML ONE (09:12)
== END 2021-09-20 04:40 | disposition home or self-care (01) ==
LOC: ERS 00:53
DX: R07.9 Chest pain, unspecified (principal); N18.6 End stage renal disease; J44.9 Chronic obstructive pulmonary disease, unspecified; Z79.899 Other long term (current) drug therapy
CPT/HCPCS: 71045; 71275; 80053; 82553; 83735; 84484; 85025; 93005; 96374; J1885; J3010

== ENCOUNTER 2021-10-11 13:38 | Emergency (ER) | payer OTHER, MEDICAID ==
[2021-10-11] MEDS ORDERED: Morphine 4 MG/ML VIAL ONE (17:22)
[2021-10-11 17:46] LABS: Hemoglobin 11.4 g/dL (12.0-16.0); Mean Corpuscular Hemoglobin 33.4 pg (27.0-31.0); Mean Platelet Volume 8.1 fL (7.4-10.4); Platelet Count 123 thou/uL (130-400); RBC Distribution Width 15.5 % (11.5-14.5); White Blood Cell (WBC) Count 3.8 thou/uL (4.8-10.8)
[2021-10-11 17:47] LABS: #Eosinphils 0.1 thou/uL (0.0-0.7); #Lymphocytes 1.2 thou/uL (1.20-3.40); #Monocytes 0.4 thou/uL (0.11-0.59); #Neutrophils 2.1 thou/uL (1.40-6.50); %Basophils 1.2 % (0.0-1.0); %Eosinophils 3.3 % (0.0-10.0); %Lymphocytes 31.2 % (21.0-51.0); %Monocytes 10.1 % (0.0-10.0); %Neutrophils 54.2 % (42.0-75.0)
[2021-10-11 18:12] LABS: Anisocytosis SLIGHT = 6-15 cells (100X) (0-5/hpf); Hypochromia SLIGHT = 6-15 cells (100X) (0-5/hpf); MDiff Complete? YES; Macrocytosis SLIGHT = 6-15 cells (100X) (0-5/hpf); Ovalocytes SLIGHT = 2-5 cells (100X) (0-1/hpf); Platelet Morphology Comment Appears Decreased; Polychromasia SLIGHT = 2-3 cells (100X) (0-2/hpf)
== END 2021-10-11 18:59 | disposition home or self-care (01) ==
LOC: ERS 13:38
DX: S50.11XA Contusion of right forearm, initial encounter (principal); N18.6 End stage renal disease; Z99.2 Dependence on renal dialysis; J44.9 Chronic obstructive pulmonary disease, unspecified; Z86.73 Personal history of transient ischemic attack (TIA), and cerebral infarction without residual deficits; Z79.01 Long term (current) use of anticoagulants; Z79.899 Other long term (current) drug therapy; W01.190A Fall on same level from slipping, tripping and stumbling with subsequent striking against furniture, initial encounter
CPT/HCPCS: 36415; 85025; 93931; 96372; J2270

== ENCOUNTER 2021-10-15 18:59 | Emergency (ER) | payer MEDICARE, MEDICAID ==
[2021-10-15] MEDS ORDERED: Morphine 4 MG/ML VIAL ONE ×2 (21:19→23:14)
== END 2021-10-15 23:40 | disposition home or self-care (01) ==
LOC: ERS 18:59
DX: M79.81 Nontraumatic hematoma of soft tissue (principal); J18.9 Pneumonia, unspecified organism; Z86.73 Personal history of transient ischemic attack (TIA), and cerebral infarction without residual deficits; J44.9 Chronic obstructive pulmonary disease, unspecified; N18.6 End stage renal disease; Z99.2 Dependence on renal dialysis; I48.91 Unspecified atrial fibrillation; Z79.899 Other long term (current) drug therapy; Z79.01 Long term (current) use of anticoagulants
CPT/HCPCS: 93931; 96374; 96376; J2270

== ENCOUNTER 2021-10-29 13:55 | Emergency (ER) | payer MEDICARE, OTHER ==
[2021-10-29 14:51] LABS: #Eosinphils 0.1 thou/uL (0.0-0.7); #Monocytes 0.3 thou/uL (0.11-0.59); #Neutrophils 1.8 thou/uL (1.40-6.50); %Basophils 0.7 % (0.0-1.0); %Eosinophils 2.9 % (0.0-10.0); %Lymphocytes 29.7 % (21.0-51.0); %Neutrophils 56.8 % (42.0-75.0); Hemoglobin 10.6 g/dL (12.0-16.0); Mean Corpuscular HGB CONC 30.7 g/dL (32.0-36.0); Mean Corpuscular Hemoglobin 34.1 pg (27.0-31.0); Mean Platelet Volume 7.5 fL (7.4-10.4); Platelet Count 167 thou/uL (130-400); RBC Distribution Width 16.5 % (11.5-14.5); Red Blood Cell (RBC) Count 3.12 mill/uL (4.20-5.40); White Blood Cell (WBC) Count 3.2 thou/uL (4.8-10.8)
[2021-10-29 15:14] LABS: ALT (SGPT) 11 U/L (8-55); AST (SGOT) 24 U/L (5-34); Alkaline Phosphatase 67 U/L (40-110); BUN (Urea Nitrogen) 11 mg/dL (9.8-20.1); Bilirubin, Total 0.7 mg/dL (0.2-1.2); Calc. Creatinine Clearance 0 mL/min (70-130); Calcium 8.8 mg/dL (7.8-10.44); Globulin 3.2 g/dL (2.4-3.5); Glucose 80 mg/dL (70-105); Protein, Total 6.2 g/dL (6.0-8.3)
[2021-10-29 15:24] LABS: Anion Gap 18 mmol/L (10-20); Carbon Dioxide 35 mmol/L (22-29); Chloride 93 mmol/L (98-107); Potassium 3.5 mmol/L (3.5-5.1); Sodium 142 mmol/L (136-145)
[2021-10-29] MEDS ORDERED: diphenhydrAMINE 50 MG/ML VIAL ONE (15:41)
[2021-10-29] MEDS ORDERED: Prochlorperazine 10 MG/2 ML VIAL ONE (15:47)
== END 2021-10-29 16:20 | disposition home or self-care (01) ==
LOC: ERS 13:55
DX: R55 Syncope and collapse (principal); G43.909 Migraine, unspecified, not intractable, without status migrainosus; R53.1 Weakness; I48.91 Unspecified atrial fibrillation; J44.9 Chronic obstructive pulmonary disease, unspecified; N18.6 End stage renal disease; Z79.899 Other long term (current) drug therapy; Z79.01 Long term (current) use of anticoagulants
CPT/HCPCS: 36415; 71045; 80053; 84484; 85025; 93005; 96361; 96374; 96375; J0780; J1200